=== PATIENT | female | born 1930 | race Caucasian/White ===

== ENCOUNTER 2017-11-01 13:50 | Inpatient (IN) ==
--- NOTE | 2017-11-01 14:12 | Emergency Department Report ---
Fall HPI - General Stated Complaint: FALL Time Seen by Provider: 11/01/17 14:28 Source: patient - History of Present Illness HPI Narrative: 87 YO F brought to ED via EMS for falling twice in the past 24 hours. Patient says she thinks falls are related to the increasing swelling, redness and bumps all over her bilateral lower legs. Says swelling started approx. one week ago. Has been soaking her legs once a day. Admits to hx. of CHF and renal disease. Patient says she is not taking any medications. Patient denies any injury from falls, striking her head, LOC, fever, chills, CP , SOA, nausea, vomiting, abdominal pain, diarrhea, dysuria. Patient denies any pain at this time. Patient continually states to provider that I am not going to be admitted to the hospital. Patient is difficult to obtain medical hx. Patient is orient x 3 but is slow to answer questions (questionable cognitive deficit)/ Neighbor who looks in on patient states patient's legs having been getting worse over the last year (bumps having been increasing). Neighbor says patient last saw a doctor last fall. Says patient is noncompliant and does not take any prescribed medication. Has seen Dr. Garcia and Dr. Nicholas but not in over 10 months to 1 year. - Related Data Previous Rx's Medication Instructions Recorded Acetaminophen [Tylenol] 500 mg PO Q5H PRN tab 11/10/17 Amlodipine [Norvasc] 10 mg PO HS #30 tab 11/10/17 Bisacodyl Supp [Dulcolax] 10 mg RECTALLY DAILY PRN 11/10/17 suppositor Cyanocobalamin (B-12) [Vit. B-12] 1,000 mcg PO DAILY tab 11/10/17 Fluconazole [Diflucan 150 mg 150 mg PO DAILY #2 tab 11/10/17 Tablet] Furosemide [Lasix 20 mg Tab] 20 mg PO DAILY #20 tab 11/10/17 Haloperidol [Haldol] 0.5 mg PO HS #30 tab 11/10/17 LORazepam [Ativan] 0.5 mg PO Q6HR PRN #20 tab 11/10/17 Losartan [Cozaar] 100 mg PO DAILY #30 tab 11/10/17 Milk of Magnesia [Mom] 30 ml PO DAILY PRN udc 11/10/17 Nystatin Cream [Mycostatin] 1 applicatio TOP TID #1 tube 11/10/17 PEG 3350 17gm PACKET [Miralax] 17 gm PO DAILY PRN packet 11/10/17 Spironolactone [Aldactone 25 mg] 25 mg PO DAILY #30 tab 11/10/17 Tramadol [Ultram] 50 mg PO Q4H PRN #30 tab 11/10/17 Allergies Allergy/AdvReac Type Severity Reaction Status Date / Time Sulfa (Sulfonamide Allergy Unknown Verified 11/01/17 14:05 Antibiotics) Review of Systems All systems: reviewed and negative except as stated Cardiovascular: Reports: edema, other Integumentary: Reports: erythema, lesions, swelling PFSH Patient Stated Medical History Congestive Heart Failure Yes Hypertension Yes Pneumonia Yes Hx Urinary Tract Infection Yes Blood Transfusions Yes Post Menopausal Yes Surgical History: Cholecystectomy. Hysterectomy. Appendectomy Family History: Parents both had "heart disease". - Social History Smoking status: Never smoker Substance use type: does not use Alcohol intake frequency: does not drink Physical Exam - Limitations Limitations: no limitations - General General appearance: alert - Normal Exams: Neck:: Full range of motion Chest/Respirations:: Clear all clifton, with good airflow, and symmetry bilaterally Cardiovascular:: Regular rate and rhythm Neurological:: Patient is alert, and oriented Psychiatric:: Patient exhibits, appropriate attention - Head Head exam: normocephalic - Expanded Head Exam Head exam physical: Present: other (ecchymosis over left malar area (various stage of healing brusing)) - Eye Eye exam: Present: EOMI - ENT ENT exam: Present: mucous membranes moist - Neck Neck exam: Present: trachea midline - Chest Chest inspection: Present: symmetric chest wall rise - Abdominal Exam Abdominal exam: Present: soft, guarding, rebound, hypoactive bowel sounds (x4). Absent: distention, tenderness - Extremities Exam Extremities exam: Present: other (see below) - Skin Skin exam: Present: other (see below) - Other Other exam information: 3-4+ edema bilateral lower leg Clifton peel appearing skin and mild erythema on bilateral lower legs and feet. Whitish scale on feet Hypertrophic bilateral toe nails Fall - MDM Narrative Medical decision making narrative: Patient declines IV. Labs unremarkable except for potassium of 2.6. Po 40 milliequivalents given. Bilirubin 2.30 (patient has no complaint of abdominal pain or no TTP of abdomen) Pro BNP 738 Patient declines IV potassium. Patient continues to refuse admission to hospital. Patient eventually agrees to 20 milliequivalents IV (Ike peres). Patient BP treated with 10mg of hydralazine. Neighbor says that patient has said that she see bug on her ceiling at home. Says patient had a UTI last time she saw bugs on her ceiling. I asked Dr. Jones to go in and see patient. Dr. Jones said that he spoke with patient and she does agree to admission. When I went back in to see patient she is now saying she does not want to be admitted. - Medical Records Attestation: I reviewed the patient's medical records. - Lab Data Attestation: I reviewed the patient's lab results. Result diagrams: 11/03/17 04:26 11/09/17 04:59 Disposition Clinical Impression: Hypokalemia, Candidiasis, intertrigo, Elevated BP without diagnosis of hypertension, Bilateral lower leg cellulitis, Self-care deficit in patient living alone Disposition: 02 To [facility] Condition: Stable - Seen By: midlevel and physician
[2017-11-01] MEDS ORDERED: LIDOCAINE 1% INJ 10 MG, POTASSIUM CHLORIDE INJ 10 MEQ in NS 100 ML IV SCH (16:00)
[2017-11-01] MEDS ORDERED: HYDRALAZINE 20 MG/ML INJECTION IVP ONE (17:00)
[2017-11-01 19:44] VITALS: BMI 30.4
--- NOTE | 2017-11-01 19:57 | History & Physical Report ---
History of Present Illness Date: 11/01/17 Chief complaint: falls, painful swollen legs HPI: Mrs. Patricia is a 87 yo female who reports falling a week ago and being seen in the emergency room at that time followed by a fall last night prompting reevaluation today. Review of ER records indicate she was last seen on 2016 at which time she had hallucinations, and pain and swelling of the ankles and was found to have a urinary tract infection. The patient reports that she summoned her neighbors help today by yelling all night and that her neighbor brought her to the emergency room for evaluation. Patient complains of swelling in her legs for about a year and that her legs are painful and "broken out all over". The pain and swelling in her legs makes it difficult for her to ambulate because her legs are heavy. She denies having fevers and there's been no drainage from her legs. EMS records indicate the patient is on twice in the past 24 hours. Patient denies injuring herself today but reports that she had facial bruising and contusions after her last fall. The neighbor who accompanied patient to the emergency room earlier today reports that the patient 's legs been getting worse over the past year and to become very bumpy. Patient was last seen by a physician last fall and the patient is noncompliant with medications not taking any prescribed medications currently. The patient alternately provides current historical information mixed in with old historical information and it's often difficult to determine if she is talking about current events or remote occurrences. Review of Systems All systems PM: 10-point ROS was reviewed, no additional remarkable complaints except (tinnitus, occasional chest pain which resolves when she sits down, stomach pain after she takes a couple of baby aspirin, possible weight gain, and increasing concern that she is unable to care for herself adequately at home.) Past Medical History Medical History: Medical History (Last Updated 11/01/17 @ 20:15 by Romelia Curran MD) Arthritis CAD (coronary artery disease) History SC 2-patient denies past history of coronary disease but reported an earlier records Congestive heart failure Hyperlipidemia Per past medical records Hypertension Surgical History: Hysterectomy with subsequent oophorectomy in a separate procedure; probable cholecystectomy (past records indicates prior appendectomy not cholecystectomy) Family History Updates: Both parents had coronary artery disease, mother had hypertension, father had colon cancer and may have related to GI hemorrhage. Son in motor vehicle accident at age 16. Family History: As Above - Social History Smoking status: Never smoker Substance use type: does not use Alcohol intake frequency: does not drink Social history: Patient reports she sees both Dr. Garcia and Dr. Nicholas but has seen neither in the recent past Her daughter has DPOA by patient history. Full code Medications Home Medications Medication Instructions Recorded Confirmed Type No known Home medications [No home 11/01/17 11/01/17 History meds] Allergies Allergy/AdvReac Type Severity Reaction Status Date / Time Sulfa (Sulfonamide Allergy Unknown Verified 11/01/17 14:05 Antibiotics) Exam Vital Signs: Temperature 98.4 F 11/01/17 13:55 Pulse Rate 82 11/01/17 17:48 Respiratory Rate 20 11/01/17 13:55 Blood Pressure 186/88 H 11/01/17 17:48 Pulse Oximetry 93 - RA 11/01/17 13:55 EXAM: General-NAD, talkative but circular speech combining past events with current events; speaks about parents as though they're alive HEENT-PERRL, EOMI without nystagmus, conjugate gaze, conjunctiva clear, sclera anicteric, facial structures symmetric, oropharynx clear, neck supple and without adenopathy Lungs-respirations nonlabored, good airflow, breath sounds clear Cardiac-regular rhythm, S1-S2 Abd-soft, nontender, bowel sounds present Ext-+3-4 edema bilateral lower extremities with peau d'orange appearance below the knees, no obvious ulcerations, mild erythema without warmth; some pitting edema palpable above the knees; hypertrophic nails Skin-as above MS-kyphotic with degenerative changes in the small joints of the hands Neuro-moving all extremities well however cannot raise her legs off the bed, no drift to the upper extremity; sensation intact to to touch and legs hypersensitive to touch, cranial nerves 3-12 intact Psych-pleasant, calm, cooperative Height/Weight/BMI: Height 1.8 m Weight 99.1 kg Body Mass Index 30.4 Results - Labs CBC & Chem 7: 11/01/17 14:54 11/01/17 14:54 Labs: Bilirubin 2.3, remainder of liver enzymes unremarkable ProBNP 743 Urinalysis unremarkable - ECG Data Tracing #1 I reviewed this ECG and interpreted as documented below: (sinus rhythm, old inferior SC, diffuse T-wave flattening) Assessment and Plan (1) Self-care deficit in patient living alone Current visit: Yes Status: Acute (2) Hypokalemia Current visit: Yes Status: Acute Assessment and Plan: Impression: Deficiency in self-care Hypokalemia Edema/lymphedema Candidiasis/intertrigo Stasis dermatitis-severe Uncontrolled hypertension Ambulatory dysfunction with falls Hyperbilirubinemia Reported history of CHF, CAD, hyperlipidemia-all untreated currently Probable cognitive deficits Plan: Resume diuretics, pain control, continue potassium replacement-received 60 mEq in the emergency room, reassess in a.m. before additional doses given. Etiology of hypokalemia unclear-mild hypokalemia present when she was in the emergency room in April 2017 but prior to that time potassium was normal. Topical antifungal's at present, cultures needed, may require biopsy of LE. Marked hypertension, will avoid calcium blockers due to lower extremity edema. Resume diuretics, losartan 50 mg tonight, hydralazine/labetalol IV as needed. Elevate legs. Tramadol for pain if needed. Records indicate intolerance of acetaminophen products. Chest x-ray will be obtained due to uncontrolled hypertension and history of CHF. Will require PT/OT evaluations and case management assessment. YAMILETH eval will be scheduled. Unclear patient can live safely in the community at this time. Initiate Pepcid 20 mg twice a day as patient describes abdominal pain with baby aspirin. Lovenox for DVT prophylaxis. Full code per patient request although I'm not sure she understood the conversation. Discussed with nursing, ER provider; past hospital records reviewed. DVT Prophylaxis: Lovenox GI Prophylaxis: Pepcid Resuscitation Status: Full Code - Physician Narrative Narrative: Date: 11/01/17 Time: 1950 Hospital Course Summary Disclaimer: The visit summary below is not to be considered part of the above Progress Note.
[2017-11-01] MEDS ORDERED: LABETALOL 100mg/20ml INJECTION IVP PRN (20:21)
[2017-11-01] MEDS ORDERED: METOCLOPRAMIDE 10mg/2ml INJECTION IVP PRN (20:24)
[2017-11-01] MEDS ORDERED: FUROSEMIDE 20 MG/2 ML INJECTION IVP ONE (20:28)
[2017-11-01] MEDS: TRAMADOL 50 MG TABLET PO PRN (21:59)
[2017-11-01] MEDS: LOSARTAN 50 MG TABLET PO SCH (23:03)
[2017-11-01] MEDS: FAMOTIDINE 20 MG TABLET PO SCH (23:03)
[2017-11-01] MEDS: HYDRALAZINE 20 MG/ML INJECTION IVP PRN (23:40)
[2017-11-01] MEDS: SALINE FLUSH 10ml SYRINGE IVF PRN (23:44)
[2017-11-02] MEDS: HALOPERIDOL 5 MG/ML INJECTION IM SCH ×2 (06:17→22:57)
[2017-11-02] MEDS: ENOXAPARIN 40 MG/0.4 ML INJECTION SQ SCH (08:37)
[2017-11-02] MEDS: FAMOTIDINE 20 MG TABLET PO SCH ×2 (08:38→22:57)
[2017-11-02] MEDS: POLYETHYL GLYCOL 3350 17gm PACKET PO SCH (08:38)
[2017-11-02] MEDS: LOSARTAN 50 MG TABLET PO SCH ×2 (08:38→14:53)
--- NOTE | 2017-11-02 09:46 | Progress Note ---
- Date 11/02/17 Subjective: Suzanna is seen today in follow up. She remains quite confused, but is alert. She is frustrated, wants to know why she is in the hospital. Discussed that she is sick- states "If you did that to everyone, you would be full all the time." She will not answer if she is having pain. Has been refusing her medications. I asked about the skin changes to her legs- she reports that it has been going on "for a while." Denies using any cream on them-"they won't give me anything." Chart is reviewed for collateral information. Patient is a poor historian. Does not want to be in the hospital. Objective Vital signs: Temperature 97.4 F 11/02/17 04:06 Pulse Rate 82 11/02/17 04:06 Respiratory Rate 24 11/02/17 04:06 Blood Pressure 170/90 H 11/02/17 04:06 Pulse Oximetry 91 11/02/17 04:06 Rhythm: Bundle Branch Block Height/Weight/BMI: Height 1.8 m Weight 98.7 kg Body Mass Index 30.4 - Constitutional Present: no acute distress, obese, disheveled - Routine HEENT Exam Head: Present: normocephalic, atraumatic Eye: Present: EOMI, PERRL, periorbital ecchymosis (left eye) ENT: Present: mucous membranes dry - Routine Respiratory Exam Present: decreased breath sounds, CTA bilaterally. Absent: dyspnea, rales, rhonchi, crackles - Routine Cardiovascular Exam Present: S1, S2, click Comments: Occasional skipped beat, but overall is regular. - Routine Abdominal Exam Present: soft, normoactive bowel sounds, non distended, non tender - Routine Extremities Exam Present: edema, pulses intact, tenderness - Routine Back/Spine/Pelvis Exam Back/Spine: Present: kyphosis - Routine Musculoskeletal Exam Musculoskeletal: Present: limited range of motion. Absent: normal strength - Routine Skin Exam Present: dry, warm, lesions, wounds (Bilateral LE nodular lesions mid calf to toes. Mildly erythematous. Unstable ulcers on the tips of first and second toes , right foot. Small open area left white. ), cracked - Routine Neurological Exam Present: alert, moving all extremities, normal speech. Absent: oriented X3 - Routine Psychiatric Exam Present: anxious, paranoid. Absent: normal affect, normal thought process, good insight, good judgment Results - Labs CBC & Chem 7: 11/02/17 04:47 11/02/17 04:47 - Imaging and Cardiology Chest x-ray Status: image reviewed by me, pending Additional comments: Grossly abnormal. Very elevated right hemidiaphragm. Very large, triangular density in upper chest- impossible to accurately determine findings on film. Right side is much more progressed since last CXR 2014. Will order repeat. Assessment and Plan (1) Hypokalemia Current visit: Yes Status: Acute (2) Self-care deficit in patient living alone Current visit: Yes Status: Acute Assessment and Plan: Impression: Deficiency in self-care Hypokalemia Edema/lymphedema Candidiasis/intertrigo Stasis dermatitis-severe Uncontrolled hypertension Ambulatory dysfunction with falls Hyperbilirubinemia Reported history of CHF, CAD, hyperlipidemia-all untreated currently Probable cognitive deficits Plan: 11/02/17 Patient remains very confused. Does not want to be here, but I strongly question her competency in regards to decision making capacity. It appears that there were similar concerns in 2015, but this has progressed. Will consult psychiatry for assessment. PT/OT eval pending, pt. will need SONJA. She clearly cannot care for herself at this point, so will continue hospital stay. Persistent Hypokalemia despite replacement. Will initiate IV replacement therapy. She continues to require monitoring for both her hypokalemia and elevated BP. Will change to inpatient status. Order telemetry monitoring during IV replacement, and to further assess irregular rhythm heard on exam. Patient remains very hypertensive, but has been refusing antihypertensive medications. Will start her on Clonidine TTS for now, but will need to monitor for sedation in an inpatient setting. Legs remain grossly abnormal. Would consider biopsy of lesions to R/O lymphoma. Possible surgery consult in AM for bx. Edema is better. EF is unknown. Pt was not voiding last night- if persists, we may need to place a Alford. Will repeat CXR given one done last night was grossly abnormal, concern for poor study. Will need SW involvement. Continue to monitor labs. Old chart reviewed. D/W Dr. Curran. DVT Prophylaxis: Lovenox GI Prophylaxis: Pepcid Resuscitation Status: Full Code - Time spent with patient Time with patient PN: other (45 minutes spent in patient care-majority in conversation with the patient at the bedside.) - Physician Narrative Physician: Romelia Curran MD Narrative: Date: 11/02/17 Time: 1734 I have independently evaluated and examined this patient. I reviewed the chart, the patient's history, and the [employer]/PA's documented findings as above. We discussed and formulated the assessment and plan as above with additions as below: Suzanna was frustrated when I saw her just after noon today; she had declined all medications this morning indicating that everything she's ever taken has caused problems. We had a lengthy discussion regarding falls and fall risk and the fact that she is unable to ambulate safely. I reminded her that she came to the hospital to get help and is now rejecting attempts to help her. Results of her labs and vital signs were reviewed with her in detail and need to intervene to prevent strokes and arrhythmias discussed. She complained of cramping in her right forearm but denied headache or difficulty breathing. She reported that she thought her legs looked a little better and less swollen today than yesterday. She eventually acknowledged that she is not able to walk by herself. Disheveled physical appearance Respirations are nonlabored and anterior breath sounds clear Lower extremities with +2 nodular edema, faint erythema; dry ulcerations adjacent to toenails as described above; hypertrophic nails Tracks conversation a little better today than she did last night Chest x-rays reviewed by myself-initial film could not really be interpreted other than elevated right hemidiaphragm (patient reports is always been that way ) film repeated and demonstrates elevated right hemidiaphragm, chronic changes in the left proximal humerus consistent with old fracture, and relatively clear lung clifton. Potassium (symptomatic) and phosphorus both require replacement-IV replacement recommended for simplicity but patient has rejected that idea; K-Phos ordered- patient agrees to taking orange juice but has yet to take a dose. She has taken losartan this afternoon after discussion with both myself and her daughter. Sonja testing planned; psychiatric assessment planned-discussed with Dr. Dennis earlier today. Wound care ordered-briefly discussed biopsy of lower extremity with patient and her daughter. The patient's daughter describes increasing confusion for a number of months with episodes when the patient loses all sensitive reality and confabulates- patient has recently insisted that her daughter was in town earlier this week although she actually has not been here since June; her daughter reports that the patient is currently angry with her for leaving [facility] earlier this week. The patient has a sister who lives in [place] and friends who live in the same [facility] house complex who provides significant assistance for the patient and we'll be able to provide additional supplemental history. Patient has previously refused extra help in the home including Meals on Wheels and housekeeping services which her daughter attempted to set up earlier this year. Daughter describes patient is very strong-willed and reports that her mother has been ready to for some time following deaths of her and son previously. Hospital Course Summary Disclaimer: The visit summary below is not to be considered part of the above Progress Note. Hospital Course: Impression: Deficiency in self-care Hypokalemia Edema/lymphedema Candidiasis/intertrigo Stasis dermatitis-severe Uncontrolled hypertension Ambulatory dysfunction with falls Hyperbilirubinemia Reported history of CHF, CAD, hyperlipidemia-all untreated currently Probable cognitive deficits Plan: Resume diuretics, pain control, continue potassium replacement-received 60 mEq in the emergency room, reassess in a.m. before additional doses given. Etiology of hypokalemia unclear-mild hypokalemia present when she was in the emergency room in April 2017 but prior to that time potassium was normal. Topical antifungal's at present, cultures needed, may require biopsy of LE. Marked hypertension, will avoid calcium blockers due to lower extremity edema. Resume diuretics, losartan 50 mg tonight, hydralazine/labetalol IV as needed. Elevate legs. Tramadol for pain if needed. Records indicate intolerance of acetaminophen products. Chest x-ray will be obtained due to uncontrolled hypertension and history of CHF. Will require PT/OT evaluations and case management assessment. SONJA eval will be scheduled. Unclear patient can live safely in the community at this time. Initiate Pepcid 20 mg twice a day as patient describes abdominal pain with baby aspirin. Lovenox for DVT prophylaxis. Full code per patient request although I'm not sure she understood the conversation. Discussed with nursing, ER provider; past hospital records reviewed. 11/02/17 Patient remains very confused. Does not want to be here, but I strongly question her competency in regards to decision making capacity. It appears that there were similar concerns in 2014, but this has progressed. Will consult psychiatry for assessment. PT/OT eval pending, pt. will need SONJA. She clearly cannot care for herself at this point, so will continue hospital stay. Persistent Hypokalemia despite replacement. Will initiate IV replacement therapy. She continues to require monitoring for both her hypokalemia and elevated BP. Will change to inpatient status. Order telemetry monitoring during IV replacement, and to further assess irregular rhythm heard on exam. Patient remains very hypertensive, but has been refusing antihypertensive medications. Will start her on Clonidine TTS for now, but will need to monitor for sedation in an inpatient setting. Legs remain grossly abnormal. Would consider biopsy of lesions to R/O lymphoma. Edema is better. EF is unknown. Pt was not voiding last night- if persists, we may need to place a Alford. Will repeat CXR given one done last night was grossly abnormal, concern for poor study. Will need SW involvement. Continue to monitor labs. Old chart reviewed. D/W Dr. Curran
--- NOTE | 2017-11-02 12:34 | XRay Report ---
Indication: CHF PROCEDURE: XR chest 1V: Encounter: Initial Comparison: August 08, 2010 Findings: Elevated right hemidiaphragm. Soft tissues overlapping the upper to mid lung clifton limiting the evaluation. No focal pneumonia or gross pneumothorax. Colon interposition anterior to the liver. Cardiac silhouette is obscured. Pulmonary vascularity is now not obviously enlarged. Densities projecting over the right upper abdomen could represent healing subacute rib fractures or possibly gallstones. Impression: Limited exam. No focal pneumonia. .
[2017-11-02] MEDS ORDERED: POTASSIUM ACID PHOSPHATE 500 MG TABLET (URINARY ACIDIFIER) PO SCH (12:36)
--- NOTE | 2017-11-02 12:39 | XRay Report ---
Indication: Abnormal CXR PROCEDURE: XR chest 1V: Encounter: Initial Comparison: November 01, 2017 Findings: Appearance of the chest is unchanged with a markedly elevated right hemidiaphragm. No obvious focal pneumonia, gross pleural effusion or pneumothorax. Cardiac silhouette is mostly obscured. Pulmonary vascularity is stable. Chronic appearing left humeral head fracture. Impression: Stable chest without gross pneumonia or overt congestive failure. .
[2017-11-02] MEDS: POTASSIUM CHLORIDE INJ 40 MEQ in NS 1,000 ML IV SCH (12:48)
[2017-11-02] MEDS: LIDOCAINE 1% INJ 10 MG, POTASSIUM CHLORIDE INJ 10 MEQ in NS 100 ML IV SCH (12:48)
[2017-11-02] MEDS: SALINE FLUSH 10ml SYRINGE IVF PRN (14:33)
[2017-11-02] MEDS: TRAMADOL 50 MG TABLET PO PRN (14:51)
[2017-11-02] MEDS: PHOSPHORUS 250 MG TABLET PO SCH ×2 (18:25→22:36)
[2017-11-02] MEDS ORDERED: FALL RISK - PHARMACY CONSULT MC ONE (23:18)
[2017-11-03] MEDS: POTASSIUM CHLORIDE INJ 40 MEQ in NS 1,000 ML IV SCH ×2 (06:44→12:09)
--- NOTE | 2017-11-03 07:51 | 24 Hour Neuropsychiatic Eval ---
Date of Admission: 11/02/17 09:53 Chief complaint: "I had a fall" History of Present Illness: Patient is an 87 y/o , retired female who was admitted to [facility] on 11/01/17 s/p fall at home. Patient lives at home independently. Per primary team at time of admission: "Mrs. Patricia is a 87 yo female who reports falling a week ago and being seen in the emergency room at that time followed by a fall last night prompting reevaluation today. Review of ER records indicate she was last seen on 05/16/2017 at which time she had hallucinations, and pain and swelling of the ankles and was found to have a urinary tract infection. The patient reports that she summoned her neighbors help today by yelling all night and that her neighbor brought her to the emergency room for evaluation. Patient complains of swelling in her legs for about a year and that her legs are painful and "broken out all over". The pain and swelling in her legs makes it difficult for her to ambulate because her legs are heavy. She denies having fevers and there's been no drainage from her legs. EMS records indicate the patient is on twice in the past 24 hours. Patient denies injuring herself today but reports that she had facial bruising and contusions after her last fall. The neighbor who accompanied patient to the emergency room earlier today reports that the patient's legs been getting worse over the past year and to become very bumpy. Patient was last seen by a physician last fall and the patient is noncompliant with medications not taking any prescribed medications currently. The patient alternately provides current historical information mixed in with old historical information and it's often difficult to determine if she is talking about current events or remote occurrences." Since admission, patient has given varying stories and doesn't seem to have cognitive grasp of medical issues or recommended care. Psychiatry was consulted for capacity evaluation. On interview, patient is pleasant though lacks insight into cognitive deficits and feels she has been managing well at home. She reports that her mood is "jolly" most of the time and denies feeling depressed, SI, HI, AVH. She states that she doesn't have any current medical conditions other than her pain in her legs and recent fall. She cannot name any past medical conditions that she has had. She is unable to tell me who her PCP is or when she last saw them. She states that she does not take any medications and does not need any. She remembers having a fall and believes the paramedics brought her to the hospital , but cannot say who called the paramedics or all that occurred during the event. Patient's daughter has also reported concerns about patient's functioning and declining cognition to primary team. Current medical conditions: hypokalemia (the board says "You are here for low potassium" though patient cannot relay this to me), stasis dermatitis, hypertension, increased bilirubin, history of CHF, CAD and HLD. Patient has severe edema in her legs. Patient was willing to participate in [employer] and scored an 11/30, indicating a neurocognitive disorder. She has gross deficits in working memory. Patient was fully oriented. She was able to remember 2/5 objects on delayed recall. She was unable to answer questions about money. She was able to name 8 animals in 1 minute. She was unable to repeat a series of 3+ numbers backwards. She was unable to draw a clock or set the time. She answered 1/4 story questions correctly. Patient states that she believes her daughter is financial DPOA but is unsure whether she has a medical DPOA. She would like her daughter to be her medical DPOA and is willing to sign the paperwork if she is not currently. Psych hx: Patient reports depression years ago after her 16 y/o son , but denies any hx of psychotropic use, suicide attempts or psychiatric hospitalizations. [facility] Medical History (Last Updated 11/01/17 @ 20:15 by Romelia Curran MD) Arthritis (Acute Medical) CAD (coronary artery disease) (Acute Medical) History [place] 2-patient denies past history of coronary disease but reported an earlier records Congestive heart failure (Acute Medical) Hyperlipidemia (Acute Medical) Per past medical records Hypertension (Acute Medical) Surgical History: Cholecystectomy. Hysterectomy. Appendectomy Family History: Denies any family hx of dementia. Mother: depression Family History Updates: Both parents had coronary artery disease, mother had hypertension, father had colon cancer and may have related to GI hemorrhage. Son in motor vehicle accident at age 16. 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 Has some college education. Had 2 children, her son in an accident at 16 y/o and her daughter Kerry is alive but lives in [place] per patient report. She states her also during a surgery but cannot remember when. She now lives alone in [place]. Review of Systems All systems: reviewed and no additional remarkable complaints except as stated - EENMT Balance: Present: other (recent falls at home) - Musculoskeletal Musculoskeletal: Present: other (pain in legs d/t swelling) - Neurological Neurological: Present: memory loss (patient denies), other (endorses PINEDA in L occipital region) - Hematologic/Lymphatic Hematologic/Lymphatic: Present: other (edema in BLE) Mental Status Exam Vitals: Last Vital Signs Temp 98.0 F 11/03/17 00:00 Pulse 77 11/03/17 00:00 Resp 20 11/03/17 00:00 BP 168/100 H 11/03/17 00:43 Pulse Ox 93 11/03/17 00:00 Height: 1.8 m Weight: 99.8 kg - Mental Status Exam Muscle Strength/Tone: Weak Dressing: Casual Grooming: Poor Attitude: Cooperative Motor Activity: Normal Eye Contact: Good Speech: Normal Volume: Normal Rhythm: Appropriate Rhythm Sensory: Alert Orientation: Oriented X4 Mood: Euthymic Affect: Relaxed Rate of Thoughts: Appropriate Rate Thought Organization: Organized, Confused Associations: Intact Abstract Reasoning: Poor abstract reasoning Computation: Poor Computation Thought Content: Ruminations (about son's though says this has gotten easier with time) Perception/Psychotic: Perception Normal Language: Other (some difficulty with naming) Fund of Knowledge: Poor fund of knowledge (UMS 04/24) Memory: Poor-immediate, Poor-recent Suicidal Ideation: Denies Homicidal Ideation: Denies Insight: Impaired Judgement: Impaired Impulse Control: Fair - Laboratory Result Diagrams: 11/03/17 04:26 11/03/17 04:26 Laboratory Results - last 24 hr 11/02/17 11/03/17 11/03/17 10:20 04:26 04:26 WBC 7.0 RBC 4.10 Hgb 12.1 Hct 38.3 MCV 93.4 MCH 29.5 MCHC 31.6 RDW Std Deviation 49.1 Plt Count 205 MPV 10.6 Immature Gran % (Auto) 0.1 Neut % (Auto) 60.8 Lymph % (Auto) 22.5 L Kay % (Auto) 10.5 H Eos % (Auto) 6.0 H Baso % (Auto) 0.1 Neut # (Auto) 4.2 Lymph # (Auto) 1.6 Kay # (Auto) 0.7 Eos # (Auto) 0.4 Baso # (Auto) 0.0 Abs Immat Gran (auto) 0.01 Turbidity < 20 Sodium 140 Potassium 3.2 L Chloride 100 Carbon Dioxide 31 H Anion Gap 9 BUN 17.0 Creatinine 0.7 GFR Calculation 79 BUN/Creatinine Ratio 24 Glucose 103 Glucometer 89 Calculated Osmolality 271 Calcium 8.7 Phosphorus 3.6 Icterus Index < 2 Albumin 3.5 Specimen Hemolysis 25 Assessment and Plan (1) Major neurocognitive disorder Current visit: Yes Status: Acute Other medical conditions: hypokalemia, stasis dermatitis, hypertension, hx of CHF, CAD and HLD Recommend checking Vitamin B12 and folate levels, replacing Vitamin B12 IM if under 400. Patient lacks capacity to make her own medical decisions though she would like to name her daughter medical DPOA and does have the capacity to do so. Please contact me if you have any further Qs, thank you for this consult.
[2017-11-03] MEDS: LOSARTAN 50 MG TABLET PO SCH (08:55)
[2017-11-03] MEDS: FAMOTIDINE 20 MG TABLET PO SCH ×2 (08:55→21:58)
[2017-11-03] MEDS: ENOXAPARIN 40 MG/0.4 ML INJECTION SQ SCH (08:55)
[2017-11-03] MEDS: PHOSPHORUS 250 MG TABLET PO SCH ×5 (08:55→22:12)
[2017-11-03] MEDS: POLYETHYL GLYCOL 3350 17gm PACKET PO SCH (08:56)
[2017-11-03] MEDS: FLUCONAZOLE 150 MG TABLET PO SCH (13:53)
--- NOTE | 2017-11-03 16:02 | Progress Note ---
- Date 11/03/17 Subjective: Patient is seen sitting in bed this afternoon. She c/o feeling very tired. She denies pain but has pain with palpation of the lower legs. No CP, SOA, n/ v. Reports her bowels are moving and appetite is ok. Objective Vital signs: Temperature 98.7 F 11/03/17 08:00 Pulse Rate 106 H 11/03/17 08:00 Respiratory Rate 18 11/03/17 08:00 Blood Pressure 206/113 H 11/03/17 08:00 Pulse Oximetry 94 11/03/17 08:00 Height/Weight/BMI: Weight 99.8 kg - Constitutional Present: no acute distress, well nourished, well developed - Routine HEENT Exam Head: Present: normocephalic, atraumatic - Routine Respiratory Exam Present: decreased breath sounds (RLL (has elevated R hemidiaphragm on CXR)), CTA bilaterally. Absent: wheezes - Routine Cardiovascular Exam Present: RRR (w/ occ ectopy), no murmur - Routine Abdominal Exam Present: soft, non distended, non tender - Routine Extremities Exam Comments: chronic skin changes of LE's with significant hyperkeratosis on the feet and extending up the lower leg distal to the knees. She has very mild erythema likely r/t venous stasis. Onychomycotic changes to the toenails. - Routine Skin Exam Present: dry, warm - Routine Neurological Exam Present: alert, normal speech - Routine Lymphatic Exam Lymphatic: Absent: adenopathy - Routine Psychiatric Exam Present: normal affect, cooperative Results - Labs CBC & Chem 7: 11/03/17 04:26 11/03/17 04:26 Assessment and Plan (1) Hypokalemia Current visit: Yes Status: Acute (2) Self-care deficit in patient living alone Current visit: Yes Status: Acute Assessment and Plan: Impression: Deficiency in self-care Hypokalemia Edema/lymphedema w/ chronic skin changes of LE's Candidiasis/intertrigo Stasis dermatitis-severe Uncontrolled hypertension Ambulatory dysfunction with falls Hyperbilirubinemia Reported history of CHF, CAD, hyperlipidemia-all untreated currently Probable cognitive deficits Onychomycosis Hypophosphatemia Plan: Psych evaluated pt and has ordered Vit B12 and folate. Rec replace B12 if < 400. Indicates patient has capacity to name daughter as medical DPOA. Dr. Curran has spoke with her daughter and they have agreed on DO NOT INTUBATE status. Persistent hypokalemia - potassium supplemented p.o. Repeat BMP in a.m. to follow electrolytes. Taking K-Phos. Pt willing to take Diflucan for her onychomycosis. Refusing any IV meds and fluids at present. Patient remains very hypertensive, but has been refusing antihypertensive medications. Wound clinic recommendation is to contact HH nurse who specializes in lymphedema. Case management to look into placement opts. OT rec SNU. YAMILETH 6.5. DVT Prophylaxis: Lovenox Resuscitation Status: Do Not Intubate - Time spent with patient Time with patient PN: 50 minutes Coordination of Care: >50% of visit spent providing counseling/coordination of care - Physician Narrative Physician: Romelia Curran MD Narrative: Date: 11/03/17 Time: 1814 I have independently evaluated and examined this patient. I reviewed the chart, the patient's history, and the [employer]/PA's documented findings as above. We discussed and formulated the assessment and plan as above with additions as below: Suzanna was pleasant and able to track conversation again today when I spoke with her. She is frustrated with her functional limits and acknowledges that she can't walk but does not want to consider going to a nursing facility due to cost. She denied dyspnea or nausea and indicated that she feels her legs look a little better again today and that there is less swelling. Her legs are hypersensitive to touch. We had a lengthy discussion regarding CODE STATUS and she indicated that she absolutely did not want a tube put down her throat even if it meant dying of respiratory failure. She is uncertain of whether she wants CPR or defibrillation. DNI order written. NAD, talkative Respirations nonlabored with fair airflow and clear breath sounds anteriorly Abdomen soft/nontender Lymphedema with nodular irregular skin texture below the knees, I concur that there is a little less edema than there was on admission but minimally so Marked thickening of the nails, onychomycosis; cracking of the skin of the feet. Blood pressure remains uncontrolled, patient is taking some medications but refusing all IVs therapies. Patient has previously taken Dyazide (brand-name only) and tolerated this medication without difficulty; I recommended addition of spironolactone to her regimen as both a diuretic and help with potassium management and she seems agreeable. Will additionally try oral furosemide liquid mixed in juice to promote diuresis. If blood pressures remain significantly elevated over the next 24 hours will increase losartan to 100 mg daily or add second agent. SLUMS exam per Dr. Dennis-04/24 systolic with cognitive deficits Diflucan initiated for onychomycosis/fungal skin infection Discussed with patient's daughter who anticipates returning to [place] in the next couple of days to assist with placement of her mother. She favors DO NOT RESUSCITATE order and I advised her of progress being made slowly and changed to DO NOT INTUBATE order earlier today. SNU recommended by PT/OT. Hospital Course Summary Disclaimer: The visit summary below is not to be considered part of the above Progress Note. Hospital Course: 11/01/17 Resume diuretics, pain control, continue potassium replacement-received 60 mEq in the emergency room, reassess in a.m. before additional doses given. Etiology of hypokalemia unclear-mild hypokalemia present when she was in the emergency room in April 2017 but prior to that time potassium was normal. Topical antifungal's at present, cultures needed, may require biopsy of LE. Marked hypertension, will avoid calcium blockers due to lower extremity edema. Resume diuretics, losartan 50 mg tonight, hydralazine/labetalol IV as needed. Elevate legs. Tramadol for pain if needed. Records indicate intolerance of acetaminophen products. Chest x-ray will be obtained due to uncontrolled hypertension and history of CHF. Will require PT/OT evaluations and case management assessment. YAMILETH eval will be scheduled. Unclear patient can live safely in the community at this time. Initiate Pepcid 20 mg twice a day as patient describes abdominal pain with baby aspirin. Lovenox for DVT prophylaxis. Full code per patient request although I'm not sure she understood the conversation. Discussed with nursing, ER provider; past hospital records reviewed. 11/02/17 Patient remains very confused. Does not want to be here, but I strongly question her competency in regards to decision making capacity. It appears that there were similar concerns in 2014, but this has progressed. Will consult psychiatry for assessment. PT/OT eval pending, pt. will need YAMILETH. She clearly cannot care for herself at this point, so will continue hospital stay. Persistent Hypokalemia despite replacement. Will initiate IV replacement therapy. She continues to require monitoring for both her hypokalemia and elevated BP. Will change to inpatient status. Order telemetry monitoring during IV replacement, and to further assess irregular rhythm heard on exam. Patient remains very hypertensive, but has been refusing antihypertensive medications. Will start her on Clonidine TTS for now, but will need to monitor for sedation in an inpatient setting. Legs remain grossly abnormal. Would consider biopsy of lesions to R/O lymphoma. Edema is better. EF is unknown. Pt was not voiding last night- if persists, we may need to place a [place]. Will repeat CXR given one done last night was grossly abnormal, concern for poor study. Will need SW involvement. Continue to monitor labs. Old chart reviewed. D/W Dr. Curran 11/03/17 Psych evaluated pt and has ordered Vit B12 and folate. Rec replace B12 if < 400. Indicates patient has capacity to name daughter as medical DPOA. Dr. Curran has spoke with her daughter and they have agreed on DO NOT INTUBATE status. Persistent hypokalemia - potassium supplemented p.o. Repeat BMP in a.m. to follow electrolytes. Taking K-Phos. Pt willing to take Diflucan for her onychomycosis. Refusing any IV meds and fluids at present. Patient remains very hypertensive, but has been refusing antihypertensive medications. Wound clinic recommendation is to contact nurse who specializes in lymphedema. Case management to look into placement opts. OT rec [facility]. YAMILETH 6.5.
[2017-11-03] MEDS: SPIRONOLACTONE 25 MG TABLET PO SCH (18:45)
[2017-11-04] MEDS: LOSARTAN 50 MG TABLET PO SCH ×3 (01:51→10:03)
[2017-11-04] MEDS: HYDRALAZINE 20 MG/ML INJECTION IVP PRN ×2 (07:30→15:12)
[2017-11-04] MEDS: ACETAMINOPHEN 500 MG TABLET PO PRN (10:00)
[2017-11-04] MEDS: ENOXAPARIN 40 MG/0.4 ML INJECTION SQ SCH ×2 (10:01→10:28)
[2017-11-04] MEDS: FAMOTIDINE 20 MG TABLET PO SCH ×2 (10:01→21:25)
[2017-11-04] MEDS: PHOSPHORUS 250 MG TABLET PO SCH ×4 (10:01→21:25)
[2017-11-04] MEDS: SPIRONOLACTONE 25 MG TABLET PO SCH (10:01)
[2017-11-04] MEDS: FLUCONAZOLE 150 MG TABLET PO SCH (10:02)
[2017-11-04] MEDS: POLYETHYL GLYCOL 3350 17gm PACKET PO SCH (10:02)
[2017-11-04] MEDS: FUROSEMIDE 40 MG/4 ML ORAL LIQUID PO SCH (10:02)
[2017-11-04] MEDS ORDERED: BISACODYL 10 MG SUPPOSITORY RECTALLY PRN (11:16)
[2017-11-04] MEDS ORDERED: Bisacodyl EC TAB 5 MG TABLET PO PRN (11:16)
--- NOTE | 2017-11-04 12:28 | Wound Care Progress Note ---
Wound Center Progress Note: Pt seen 11/03/17 for wound consultation r/t bilateral lower leg skin changes. Pt resting in bed, watching TV, no complaints of pain. Pt reports she has had problems with her legs for the past year. She applies no dressings at home. Pt states she tries to elevate legs, but this is difficult. Bilateral lower legs: Evidence of chronic lymphedema changes from dorsal aspect of feet to just below the knees. Skin is hyperkeratotic, fibrotic with lymph nodules. Legs are tender to palpation. Bilateral lower legs have +2-3 edema, no active drainage, skin appears to be intact, scattered small abrasions. Recommendations: Lotion as tolerated to keep skin from cracking open making it susceptible to bacteria. Pt wound benefit from tx from a lymphedema therapist. Keep legs elevated while sitting and in bed, as tolerated.
--- NOTE | 2017-11-04 13:10 | Progress Note ---
- Date 11/04/17 Subjective: F/U: Hypokalemia, LE edema, Leg weakness Doing fair. Not liking IV site that was placed overnight-irritating. Not wanting any IV meds. BP with elevation overnight-Cozaar give early. Not reporting chest pressure or pain. Breathing well-no cough/congestion. Strength feels fair. Leg edema about the same. Urinating well. Stools moving. Eating okay -notes some nausea with medications. Objective Vital signs: Temperature 97.4 F 11/04/17 08:09 Pulse Rate 93 11/04/17 08:55 Respiratory Rate 22 11/04/17 08:09 Blood Pressure 168/106 H 11/04/17 08:55 Pulse Oximetry 94 11/04/17 08:55 Rhythm: Bundle Branch Block Height/Weight/BMI: Weight 99 kg - Constitutional Present: well nourished, well developed, obese - Routine HEENT Exam Head: Present: normocephalic, atraumatic Eye: Present: EOMI, PERRL ENT: Present: mucous membranes moist - Routine Respiratory Exam Present: decreased breath sounds. Absent: rales, respiratory distress, rhonchi , wheezes, crackles - Routine Cardiovascular Exam Present: RRR, no murmur - Routine Abdominal Exam Present: soft, normoactive bowel sounds, non distended, non tender. Absent: guarding - Routine Extremities Exam Present: edema (+3 chronic LE edema with chronic skin changes ). Absent: cyanosis, clubbing - Routine Musculoskeletal Exam Musculoskeletal: Present: no clubbing or cyanosis - Routine Skin Exam Present: dry, warm - Routine Neurological Exam Present: alert, CN II-XII intact, moving all extremities, vision grossly intact , hearing grossly intact, normal speech. Absent: altered mental status - Routine Psychiatric Exam Present: normal affect, cooperative Results - Labs CBC & Chem 7: 11/03/17 04:26 11/04/17 04:05 Assessment and Plan (1) Hypokalemia Current visit: Yes Status: Acute (2) Self-care deficit in patient living alone Current visit: Yes Status: Acute Assessment and Plan: Impression Hypokalemia (POA) Deficiency in self-care Edema/lymphedema w/ chronic skin changes of LE's Candidiasis/intertrigo Stasis dermatitis-severe Uncontrolled hypertension Major neurocognitive disorder Ambulatory dysfunction with falls Hyperbilirubinemia Reported history of CHF, CAD, hyperlipidemia - all untreated currently at presentation Onychomycosis Hypophosphatemia Low normal vitamin B12 Obesity with BMi 30.4 Plan Potassium with decrease to 2.8 this am. Phos improved to 4.3. Creatinine stable at 0.6 but CO2 increased to 32. Will stop KPhos and increase oral KCl to 20meg TID with meals. Continue Cozaar 50mg daily for BP. Will continue oral Lasix and spironolactone to help decrease edema/volume. Did agree to these medications. Vitamin B12 low normal at 255 - will start oral B12 (pt's likely to refuse IM injection). Elevate legs at rest as much as possible. PT/OT to help improve functional status. Will recheck CMP, Mg in am secondary to hypokalemia and medication use. Case discussed with CM and pt's daughter. Time spent with patient care 35 minutes. DVT Prophylaxis: Lovenox Resuscitation Status: Do Not Intubate - Time spent with patient Time with patient PN: 35 minutes - Physician Narrative Physician: Alcides Manning MD Narrative: Date: 11/04/17 Time: 1307 Hospital Course Summary Disclaimer: The visit summary below is not to be considered part of the above Progress Note. Hospital Course: 11/01/17 Resume diuretics, pain control, continue potassium replacement-received 60 mEq in the emergency room, reassess in a.m. before additional doses given. Etiology of hypokalemia unclear-mild hypokalemia present when she was in the emergency room in April 2017 but prior to that time potassium was normal. Topical antifungal's at present, cultures needed, may require biopsy of LE. Marked hypertension, will avoid calcium blockers due to lower extremity edema. Resume diuretics, losartan 50 mg tonight, hydralazine/labetalol IV as needed. Elevate legs. Tramadol for pain if needed. Records indicate intolerance of acetaminophen products. Chest x-ray will be obtained due to uncontrolled hypertension and history of CHF. Will require PT/OT evaluations and case management assessment. YAMILETH eval will be scheduled. Unclear patient can live safely in the community at this time. Initiate Pepcid 20 mg twice a day as patient describes abdominal pain with baby aspirin. Lovenox for DVT prophylaxis. Full code per patient request although I'm not sure she understood the conversation. Discussed with nursing, ER provider; past hospital records reviewed. 11/02/17 Patient remains very confused. Does not want to be here, but I strongly question her competency in regards to decision making capacity. It appears that there were similar concerns in 2014, but this has progressed. Will consult psychiatry for assessment. PT/OT eval pending, pt. will need YAMILETH. She clearly cannot care for herself at this point, so will continue hospital stay. Persistent Hypokalemia despite replacement. Will initiate IV replacement therapy. She continues to require monitoring for both her hypokalemia and elevated BP. Will change to inpatient status. Order telemetry monitoring during IV replacement, and to further assess irregular rhythm heard on exam. Patient remains very hypertensive, but has been refusing antihypertensive medications. Will start her on Clonidine TTS for now, but will need to monitor for sedation in an inpatient setting. Legs remain grossly abnormal. Would consider biopsy of lesions to R/O lymphoma. Edema is better. EF is unknown. Pt was not voiding last night - if persists, we may need to place a [place]. Will repeat CXR given one done last night was grossly abnormal, concern for poor study. Will need SW involvement. Continue to monitor labs. Old chart reviewed. 11/03/17 Psych evaluated pt and has ordered Vit B12 and folate. Rec replace B12 if < 400. Indicates patient has capacity to name daughter as medical DPOA. Dr. Curran has spoke with her daughter and they have agreed on DO NOT INTUBATE status. Persistent hypokalemia - potassium supplemented p.o. Repeat BMP in a.m. to follow electrolytes. Taking K-Phos. Pt willing to take Diflucan for her onychomycosis. Refusing any IV meds and fluids at present. Patient remains very hypertensive, but has been refusing antihypertensive medications. Wound clinic recommendation is to contact nurse who specializes in lymphedema. Case management to look into placement opts. OT rec SNU. YAMILETH 6.5. Psych evaluated pt. Dx with Major neurocognitive disorder Participated in [facility] and scored an 11/30, indicating a neurocognitive disorder. She has gross deficits in working memory. Patient lacks capacity to make her own medical decisions though she would like to name her daughter medical DPOA and does have the capacity to do so. 11/04/17 Potassium with decrease to 2.8 this am. Phos improved to 4.3. Creatinine stable at 0.6 but CO2 increased to 32. Will stop KPhos and increase oral KCl to 20meg TID with meals. Continue Cozaar 50mg daily for BP. Will continue oral Lasix and spironolactone to help decrease edema/volume. Did agree to these medications. Vitamin B12 low normal at 255 - will start oral B12 (pt's likely to refuse IM injection). Elevate legs at rest as much as possible. PT/OT to help improve functional status.
[2017-11-04] MEDS: SALINE FLUSH 10ml SYRINGE IVF PRN ×2 (15:13→16:40)
[2017-11-04] MEDS ORDERED: AMLODIPINE 10 MG TABLET PO ONE (17:01)
[2017-11-05] MEDS: HYDRALAZINE 20 MG/ML INJECTION IVP PRN (04:28)
[2017-11-05] MEDS: ENOXAPARIN 40 MG/0.4 ML INJECTION SQ SCH (08:24)
[2017-11-05] MEDS: POLYETHYL GLYCOL 3350 17gm PACKET PO SCH (08:27)
[2017-11-05] MEDS: FLUCONAZOLE 150 MG TABLET PO SCH (08:27)
[2017-11-05] MEDS: FUROSEMIDE 40 MG/4 ML ORAL LIQUID PO SCH (08:28)
[2017-11-05] MEDS: CYANOCOBALAMIN (B-12) 500mcg TABLET PO SCH (08:28)
[2017-11-05] MEDS: FAMOTIDINE 20 MG TABLET PO SCH ×2 (08:28→20:42)
[2017-11-05] MEDS: LOSARTAN 50 MG TABLET PO SCH (08:29)
[2017-11-05] MEDS: SPIRONOLACTONE 25 MG TABLET PO SCH (08:29)
[2017-11-05] MEDS: PHOSPHORUS 250 MG TABLET PO SCH (09:20)
[2017-11-05] MEDS: LORazepam 1 MG TABLET PO PRN ×2 (10:53→20:42)
--- NOTE | 2017-11-05 12:42 | Progress Note ---
- Date 11/05/17 Subjective: F/U: Hypokalemia, LE edema, Leg weakness Doing fair this morning. Reluctant to take medication, but did take her oral meds. Refused Lovenox. Reports to nursing wanting to go home. Nursing did have patient ambulated out in halls to help give her a change of scenery. Breathing well. No chest pressure or pain. Notes swelling and some discomfort to legs. Objective Vital signs: Temperature 97.8 F 11/05/17 07:12 Pulse Rate 86 11/05/17 07:12 Respiratory Rate 16 11/05/17 07:12 Blood Pressure 151/81 H 11/05/17 07:12 Pulse Oximetry 96 11/05/17 07:12 Rhythm: Bundle Branch Block Height/Weight/BMI: Weight 97.5 kg - Constitutional Present: well nourished, well developed, obese - Routine HEENT Exam Head: Present: normocephalic, atraumatic Eye: Present: EOMI, PERRL ENT: Present: mucous membranes moist - Routine Respiratory Exam Present: decreased breath sounds. Absent: respiratory distress, wheezes, crackles - Routine Cardiovascular Exam Present: RRR, no murmur - Routine Abdominal Exam Present: soft, normoactive bowel sounds, non distended, non tender - Routine Extremities Exam Present: edema. Absent: cyanosis, clubbing - Routine Musculoskeletal Exam Musculoskeletal: Present: no clubbing or cyanosis - Routine Skin Exam Present: dry, warm - Routine Neurological Exam Present: alert, CN II-XII intact, moving all extremities, vision grossly intact , hearing grossly intact. Absent: motor deficit - Routine Psychiatric Exam Present: normal affect. Absent: anxious, agitated Results - Labs CBC & Chem 7: 11/03/17 04:26 11/05/17 04:52 Assessment and Plan (1) Hypokalemia Current visit: Yes Status: Acute (2) Self-care deficit in patient living alone Current visit: Yes Status: Acute Assessment and Plan: Impression Hypokalemia (POA) Deficiency in self-care Edema/lymphedema w/ chronic skin changes of LE's Candidiasis/intertrigo Stasis dermatitis-severe Uncontrolled hypertension Major neurocognitive disorder Ambulatory dysfunction with falls Hyperbilirubinemia Reported history of CHF, CAD, hyperlipidemia - all untreated currently at presentation Onychomycosis Hypophosphatemia Low normal vitamin B12 Obesity with BMI 30.4 Plan Potassium still low at 2.9 this am. Phos improved to 4.3. Creatinine stable at 0.5. CO2 normal at 29. Blood pressure still elevated, but decreasing to 150 systolic. Increase Cozaar to 100mg daily for BP. Stop Lasix due to hypokalemia - will increase spironolactone to 50mg. May need to initiate Norvasc 5mg nightly if BP not showing improvement. Stop Lovenox as patient refusing - encourage continued ambulation to help with DVT prevention. Can change Pepcid to prn dyspepsia - attempt to minimize less essential medications. Patient's daughter plans to fly out from [place] tomorrow - will work with CM on discharge issues. With patient's significant neurocognitive disorder, doubt she will be able to return to independent living. Will recheck BMP, Mg, Phos in am secondary to hypokalemia and medication use. Case discussed with CM. Time spent with patient care 25 minutes. Resuscitation Status: Do Not Intubate - Time spent with patient Time with patient PN: 25 minutes - Physician Narrative Physician: Alcides Manning MD Narrative: Date: 11/05/17 Time: 1239 Hospital Course Summary Disclaimer: The visit summary below is not to be considered part of the above Progress Note. Hospital Course: 11/01/17 Resume diuretics, pain control, continue potassium replacement-received 60 mEq in the emergency room, reassess in a.m. before additional doses given. Etiology of hypokalemia unclear-mild hypokalemia present when she was in the emergency room in April 2017 but prior to that time potassium was normal. Topical antifungal's at present, cultures needed, may require biopsy of LE. Marked hypertension, will avoid calcium blockers due to lower extremity edema. Resume diuretics, losartan 50 mg tonight, hydralazine/labetalol IV as needed. Elevate legs. Tramadol for pain if needed. Records indicate intolerance of acetaminophen products. Chest x-ray will be obtained due to uncontrolled hypertension and history of CHF. Will require PT/OT evaluations and case management assessment. YAMILETH evelia will be scheduled. Unclear patient can live safely in the community at this time. Initiate Pepcid 20 mg twice a day as patient describes abdominal pain with baby aspirin. Lovenox for DVT prophylaxis. Full code per patient request although I'm not sure she understood the conversation. Discussed with nursing, ER provider; past hospital records reviewed. 11/02/17 Patient remains very confused. Does not want to be here, but I strongly question her competency in regards to decision making capacity. It appears that there were similar concerns in 2014, but this has progressed. Will consult psychiatry for assessment. PT/OT eval pending, pt. will need YAMILETH. She clearly cannot care for herself at this point, so will continue hospital stay. Persistent Hypokalemia despite replacement. Will initiate IV replacement therapy. She continues to require monitoring for both her hypokalemia and elevated BP. Will change to inpatient status. Order telemetry monitoring during IV replacement, and to further assess irregular rhythm heard on exam. Patient remains very hypertensive, but has been refusing antihypertensive medications. Will start her on Clonidine TTS for now, but will need to monitor for sedation in an inpatient setting. Legs remain grossly abnormal. Would consider biopsy of lesions to R/O lymphoma. Edema is better. EF is unknown. Pt was not voiding last night - if persists, we may need to place a [place]. Will repeat CXR given one done last night was grossly abnormal, concern for poor study. Will need SW involvement. Continue to monitor labs. Old chart reviewed. 11/03/17 Psych evaluated pt and has ordered Vit B12 and folate. Rec replace B12 if < 400. Indicates patient has capacity to name daughter as medical DPOA. Dr. Curran has spoke with her daughter and they have agreed on DO NOT INTUBATE status. Persistent hypokalemia - potassium supplemented p.o. Repeat BMP in a.m. to follow electrolytes. Taking K-Phos. Pt willing to take Diflucan for her onychomycosis. Refusing any IV meds and fluids at present. Patient remains very hypertensive, but has been refusing antihypertensive medications. Wound clinic recommendation is to contact nurse who specializes in lymphedema. Case management to look into placement opts. OT rec SNU. YAMILETH 6.5. Psych evaluated pt. Dx with Major neurocognitive disorder Participated in [facility] and scored an 11/30, indicating a neurocognitive disorder. She has gross deficits in working memory. Patient lacks capacity to make her own medical decisions though she would like to name her daughter medical DPOA and does have the capacity to do so. 11/04/17 Potassium with decrease to 2.8 this am. Phos improved to 4.3. Creatinine stable at 0.6 but CO2 increased to 32. Will stop KPhos and increase oral KCl to 20meg TID with meals. Continue Cozaar 50mg daily for BP. Will continue oral Lasix and spironolactone to help decrease edema/volume. Did agree to these medications. Norvasc 10mg given in afternoon as BP still with elevation. Vitamin B12 low normal at 255 - will start oral B12 (pt's likely to refuse IM injection). Elevate legs at rest as much as possible. PT/OT to help improve functional status. 11/05/17 Potassium still low at 2.9 this am. Phos improved to 4.3. Creatinine stable at 0.5. CO2 normal at 29. Blood pressure still elevated, but decreasing to 150 systolic. Increase Cozaar to 100mg daily for BP. Stop Lasix due to hypokalemia - will increase spironolactone to 50mg. May need to initiate Norvasc 5mg nightly if BP not showing improvement. Stop Lovenox as patient refusing - encourage continued ambulation to help with DVT prevention. Can change Pepcid to prn dyspepsia - attempt to minimize less essential medications. Patient's daughter plans to fly out from [place] tomorrow - will work with CM on discharge issues. With patient's significant neurocognitive disorder, doubt she will be able to return to independent living.
[2017-11-05] MEDS: ACETAMINOPHEN 500 MG TABLET PO PRN (13:13)
[2017-11-05] MEDS: SPIRONOLACTONE 50 MG TABLET PO SCH (14:51)
[2017-11-05] MEDS: AMLODIPINE 5 MG TABLET PO SCH (20:42)
[2017-11-06] MEDS: CYANOCOBALAMIN (B-12) 500mcg TABLET PO SCH (09:15)
[2017-11-06] MEDS: FAMOTIDINE 20 MG TABLET PO SCH (09:16)
[2017-11-06] MEDS: SPIRONOLACTONE 50 MG TABLET PO SCH (09:16)
[2017-11-06] MEDS: ENOXAPARIN 40 MG/0.4 ML INJECTION SQ SCH ×2 (09:16→09:46)
[2017-11-06] MEDS: FLUCONAZOLE 150 MG TABLET PO SCH (09:16)
[2017-11-06] MEDS: LOSARTAN 100 MG TABLET PO SCH (09:16)
[2017-11-06] MEDS: POLYETHYL GLYCOL 3350 17gm PACKET PO SCH (09:30)
[2017-11-06] MEDS ORDERED: FAMOTIDINE 20 MG TABLET PO PRN (16:19)
--- NOTE | 2017-11-06 19:58 | Progress Note ---
- Date 11/06/17 Subjective: F/U: Hypokalemia, LE edema, Leg weakness Sleeping most of day. I checked on patient before noon (and visited at length with her daughter) but she was sleeping. Checked back mid afternoon and before dinner-sleeping. This evening, checked again and while sleeping was easily awakened. Doing okay. Ate okay for lunch. Breathing well. No specific new problems. Objective Vital signs: Temperature 97.3 F 11/06/17 18:45 Pulse Rate 79 11/06/17 18:45 Respiratory Rate 20 11/06/17 18:45 Blood Pressure 162/65 H 11/06/17 18:45 Pulse Oximetry 92 11/06/17 18:45 Rhythm: Bundle Branch Block Height/Weight/BMI: Weight 100.7 kg - Constitutional Present: well nourished, well developed, obese, cooperative - Routine HEENT Exam Head: Present: normocephalic, atraumatic Eye: Present: EOMI, PERRL ENT: Present: mucous membranes moist - Routine Respiratory Exam Present: decreased breath sounds. Absent: rales, respiratory distress, rhonchi , wheezes, crackles - Routine Cardiovascular Exam Present: RRR, no murmur - Routine Abdominal Exam Present: soft, normoactive bowel sounds, non distended, non tender - Routine Extremities Exam Present: edema (+2 BLE). Absent: cyanosis, clubbing - Routine Musculoskeletal Exam Musculoskeletal: Present: no clubbing or cyanosis - Routine Skin Exam Present: dry, warm - Routine Neurological Exam Present: alert, CN II-XII intact, moving all extremities, vision grossly intact , hearing grossly intact, normal speech. Absent: motor deficit, altered mental status - Routine Psychiatric Exam Present: normal affect. 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 Blood pressure gradually decreasing. Will continue with Cozaar, Norvasc, Spironolactone and potassium replacement. Discussed with daughter about neurocognitive disorder. DPOA paperwork done today. Psych not feeling patient able to direct care more than determining DPOA. Looking into Skilled Care at [facility]. Uncertain if patient will improve enough to be able to return home. Daughter would like patient to be able to transition to Skilled as soon as able to allow patient to begin integration there. Will recheck lab tomorrow - hope to see improvement of potassium to allow for discharge. Case discussed with CM and patient's daughter. Time spent with patient care 35 minutes. DVT Prophylaxis: other (Ambuation - refuses Lovenox) Resuscitation Status: Do Not Intubate - Time spent with patient Time with patient PN: 35 minutes - Physician Narrative Physician: Alcides Manning MD Narrative: Date: 11/06/17 Time: 1953 Hospital Course Summary Disclaimer: The visit summary below is not to be considered part of the above Progress Note. Hospital Course: 11/01/17 Resume diuretics, pain control, continue potassium replacement-received 60 mEq in the emergency room, reassess in a.m. before additional doses given. Etiology of hypokalemia unclear-mild hypokalemia present when she was in the emergency room in April 2017 but prior to that time potassium was normal. Topical antifungal's at present, cultures needed, may require biopsy of LE. Marked hypertension, will avoid calcium blockers due to lower extremity edema. Resume diuretics, losartan 50 mg tonight, hydralazine/labetalol IV as needed. Elevate legs. Tramadol for pain if needed. Records indicate intolerance of acetaminophen products. Chest x-ray will be obtained due to uncontrolled hypertension and history of CHF. Will require PT/OT evaluations and case management assessment. YAMILETH evelia will be scheduled. Unclear patient can live safely in the community at this time. Initiate Pepcid 20 mg twice a day as patient describes abdominal pain with baby aspirin. Lovenox for DVT prophylaxis. Full code per patient request although I'm not sure she understood the conversation. Discussed with nursing, ER provider; past hospital records reviewed. 11/02/17 Patient remains very confused. Does not want to be here, but I strongly question her competency in regards to decision making capacity. It appears that there were similar concerns in 2015, but this has progressed. Will consult psychiatry for assessment. PT/OT eddieal pending, pt. will need YAMILETH. She clearly cannot care for herself at this point, so will continue hospital stay. Persistent Hypokalemia despite replacement. Will initiate IV replacement therapy. She continues to require monitoring for both her hypokalemia and elevated BP. Will change to inpatient status. Order telemetry monitoring during IV replacement, and to further assess irregular rhythm heard on exam. Patient remains very hypertensive, but has been refusing antihypertensive medications. Will start her on Clonidine TTS for now, but will need to monitor for sedation in an inpatient setting. Legs remain grossly abnormal. Would consider biopsy of lesions to R/O lymphoma. Edema is better. EF is unknown. Pt was not voiding last night - if persists, we may need to place a Alford. Will repeat CXR given one done last night was grossly abnormal, concern for poor study. Will need SW involvement. Continue to monitor labs. Old chart reviewed. 11/03/17 Psych evaluated pt and has ordered Vit B12 and folate. Rec replace B12 if < 400. Indicates patient has capacity to name daughter as medical DPOA. Dr. Curran has spoke with her daughter and they have agreed on DO NOT INTUBATE status. Persistent hypokalemia - potassium supplemented p.o. Repeat BMP in a.m. to follow electrolytes. Taking K-Phos. Pt willing to take Diflucan for her onychomycosis. Refusing any IV meds and fluids at present. Patient remains very hypertensive, but has been refusing antihypertensive medications. Wound clinic recommendation is to contact nurse who specializes in lymphedema. Case management to look into placement opts. OT rec SNU. YAMILETH 6.5. Psych evaluated pt. Dx with Major neurocognitive disorder Participated in [facility] and scored an 11/30, indicating a neurocognitive disorder. She has gross deficits in working memory. Patient lacks capacity to make her own medical decisions though she would like to name her daughter medical DPOA and does have the capacity to do so. 11/04/17 Potassium with decrease to 2.8 this am. Phos improved to 4.3. Creatinine stable at 0.6 but CO2 increased to 32. Will stop KPhos and increase oral KCl to 20meg TID with meals. Continue Cozaar 50mg daily for BP. Will continue oral Lasix and spironolactone to help decrease edema/volume. Did agree to these medications. Norvasc 10mg given in afternoon as BP still with elevation. Vitamin B12 low normal at 255 - will start oral B12 (pt's likely to refuse IM injection). Elevate legs at rest as much as possible. PT/OT to help improve functional status. 11/05/17 Potassium still low at 2.9 this am. Phos improved to 4.3. Creatinine stable at 0.5. CO2 normal at 29. Blood pressure still elevated, but decreasing to 150 systolic. Increase Cozaar to 100mg daily for BP. Stop Lasix due to hypokalemia - will increase spironolactone to 50mg. May need to initiate Norvasc 5mg nightly if BP not showing improvement. Stop Lovenox as patient refusing - encourage continued ambulation to help with DVT prevention. Can change Pepcid to prn dyspepsia - attempt to minimize less essential medications. Patient's daughter plans to fly out from [place] tomorrow - will work with CM on discharge issues. With patient's significant neurocognitive disorder, doubt she will be able to return to independent living. 11/06/17 Lab showing hemolysis - potassium falsely elevated. Blood pressure gradually decreasing. Slept most of day. Daughter in from [place]. Will continue with Cozaar, Norvasc, Spironolactone and potassium replacement. Discussed with daughter about neurocognitive disorder. DPOA paperwork done today. Psych not feeling patient able to direct care more than determining DPOA. Looking into Skilled Care at [facility]. Uncertain if patient will improve enough to be able to return home. Daughter would like patient to be able to transition to Skilled as soon as able to allow patient to begin integration there. Will recheck lab tomorrow - hope to see improvement of potassium to allow for discharge.
[2017-11-06] MEDS: AMLODIPINE 5 MG TABLET PO SCH (20:34)
[2017-11-07] MEDS: CYANOCOBALAMIN (B-12) 500mcg TABLET PO SCH (08:26)
[2017-11-07] MEDS: FLUCONAZOLE 150 MG TABLET PO SCH (08:26)
[2017-11-07] MEDS: LOSARTAN 100 MG TABLET PO SCH (08:28)
[2017-11-07] MEDS: SPIRONOLACTONE 50 MG TABLET PO SCH (08:31)
[2017-11-07] MEDS: POLYETHYL GLYCOL 3350 17gm PACKET PO SCH (08:35)
--- NOTE | 2017-11-07 14:55 | Progress Note ---
- Date 11/07/17 Subjective: Patient seen today after lunch. She was sleeping but aroused easily to her name. She has no complaints. No CP, SOA, f/c, n/v. Objective Vital signs: Temperature 96.7 F L 11/07/17 13:00 Pulse Rate 75 11/07/17 13:00 Respiratory Rate 14 11/07/17 13:00 Blood Pressure 160/84 H 11/07/17 13:00 Pulse Oximetry 95 11/07/17 13:00 Height/Weight/BMI: Weight 99.2 kg - Constitutional Present: no acute distress, well nourished, well developed - Routine HEENT Exam Head: Present: normocephalic, atraumatic - Routine Respiratory Exam Present: CTA bilaterally. Absent: wheezes - Routine Cardiovascular Exam Present: RRR, no murmur - Routine Abdominal Exam Present: soft, non distended, non tender - Routine Extremities Exam Present: normal capillary refill Comments: chronic hypertrophic skin changes to the skin likely r/t lymphedema. - Routine Skin Exam Present: dry, warm - Routine Neurological Exam Present: alert, normal speech - Routine Lymphatic Exam Lymphatic: Absent: adenopathy - Routine Psychiatric Exam Present: normal affect, cooperative Results - Labs CBC & Chem 7: 11/03/17 04:26 11/07/17 05:16 Assessment and Plan (1) Hypokalemia Current visit: Yes Status: Acute (2) Self-care deficit in patient living alone Current visit: Yes Status: Acute Assessment and Plan: Impression Hypokalemia (POA) Deficiency in self-care Edema/lymphedema w/ chronic skin changes of LE's Candidiasis/intertrigo Stasis dermatitis-severe Hypertension Major neurocognitive disorder Ambulatory dysfunction with falls Hyperbilirubinemia Reported history of CHF, CAD, hyperlipidemia - all untreated currently at presentation Onychomycosis Low normal vitamin B12 Obesity with BMI 30.4 Plan Potassium has normalized. Sodium slightly low today, otherwise labs stable. BP's much improved from admission, but still Stage 2. Will continue with Cozaar , Spironolactone and potassium replacement and increase Norvasc from 5mg to 10mg. Still working on placement. DVT Prophylaxis: other (Ambulation-patent refusing other options. ) Resuscitation Status: Do Not Intubate - Time spent with patient Time with patient PN: 25 minutes - Physician Narrative Physician: Alcides Manning MD Narrative: Date: 11/07/17 Time: 1722 Have independently interviewed and examined pt. Chart reviewed. Case discussed with CM, pt's daughter, and PA. Care plan developed with my supervision; agree with above. Doing okay. Slept a lot today, but awake and alert this evening. Reports not been up much. Eating well. Breathing well. No ab pain or nausea. Lungs: decreased, no distress on RA CV: regular AB: soft nt/nd BS decreased EXT: LE edema about the same. MSE: awake alert Plan: Will continue with BP medications - potassium finally normalized. Discussed with patient at length about the critical need for Skilled Care post discharge; daughter at bedside as well strongly encouraging skilled care. With patient's weakness and cog decline, not safe for discharge to home. CM working on discharge dispositions-looking into multiple options. Hospital Course Summary Disclaimer: The visit summary below is not to be considered part of the above Progress Note. Hospital Course: 11/01/17 Resume diuretics, pain control, continue potassium replacement-received 60 mEq in the emergency room, reassess in a.m. before additional doses given. Etiology of hypokalemia unclear-mild hypokalemia present when she was in the emergency room in April 2017 but prior to that time potassium was normal. Topical antifungal's at present, cultures needed, may require biopsy of LE. Marked hypertension, will avoid calcium blockers due to lower extremity edema. Resume diuretics, losartan 50 mg tonight, hydralazine/labetalol IV as needed. Elevate legs. Tramadol for pain if needed. Records indicate intolerance of acetaminophen products. Chest x-ray will be obtained due to uncontrolled hypertension and history of CHF. Will require PT/OT evaluations and case management assessment. YAMILETH altamirano will be scheduled. Unclear patient can live safely in the community at this time. Initiate Pepcid 20 mg twice a day as patient describes abdominal pain with baby aspirin. Lovenox for DVT prophylaxis. Full code per patient request although I'm not sure she understood the conversation. Discussed with nursing, ER provider; past hospital records reviewed. 11/02/17 Patient remains very confused. Does not want to be here, but I strongly question her competency in regards to decision making capacity. It appears that there were similar concerns in 2014, but this has progressed. Will consult psychiatry for assessment. PT/OT eval pending, pt. will need YAMILETH. She clearly cannot care for herself at this point, so will continue hospital stay. Persistent Hypokalemia despite replacement. Will initiate IV replacement therapy. She continues to require monitoring for both her hypokalemia and elevated BP. Will change to inpatient status. Order telemetry monitoring during IV replacement, and to further assess irregular rhythm heard on exam. Patient remains very hypertensive, but has been refusing antihypertensive medications. Will start her on Clonidine TTS for now, but will need to monitor for sedation in an inpatient setting. Legs remain grossly abnormal. Would consider biopsy of lesions to R/O lymphoma. Edema is better. EF is unknown. Pt was not voiding last night - if persists, we may need to place a Alford. Will repeat CXR given one done last night was grossly abnormal, concern for poor study. Will need SW involvement. Continue to monitor labs. Old chart reviewed. 11/03/17 Psych evaluated pt and has ordered Vit B12 and folate. Rec replace B12 if < 400. Indicates patient has capacity to name daughter as medical DPOA. Dr. Curran has spoke with her daughter and they have agreed on DO NOT INTUBATE status. Persistent hypokalemia - potassium supplemented p.o. Repeat BMP in a.m. to follow electrolytes. Taking K-Phos. Pt willing to take Diflucan for her onychomycosis. Refusing any IV meds and fluids at present. Patient remains very hypertensive, but has been refusing antihypertensive medications. Wound clinic recommendation is to contact nurse who specializes in lymphedema. Case management to look into placement opts. OT rec SNU. YAMILETH 6.5. Psych evaluated pt. Dx with Major neurocognitive disorder Participated in [facility] and scored an 11/30, indicating a neurocognitive disorder. She has gross deficits in working memory. Patient lacks capacity to make her own medical decisions though she would like to name her daughter medical DPOA & does have the capacity to do so. 11/04/17 Potassium with decrease to 2.8 this am. Phos improved to 4.3. Creatinine stable at 0.6 but CO2 increased to 32. Will stop KPhos and increase oral KCl to 20meg TID with meals. Continue Cozaar 50mg daily for BP. Will continue oral Lasix and spironolactone to help decrease edema/volume. Did agree to these medications. Norvasc 10mg given in afternoon as BP still with elevation. Vitamin B12 low normal at 255 - will start oral B12 (pt's likely to refuse IM injection). Elevate legs at rest as much as possible. PT/OT to help improve functional status. 11/05/17 Potassium still low at 2.9 this am. Phos improved to 4.3. Creatinine stable at 0.5. CO2 normal at 29. Blood pressure still elevated, but decreasing to 150 systolic. Increase Cozaar to 100mg daily for BP. Stop Lasix due to hypokalemia - will increase spironolactone to 50mg. May need to initiate Norvasc 5mg nightly if BP not showing improvement. Stop Lovenox as patient refusing - encourage continued ambulation to help with DVT prevention. Can change Pepcid to prn dyspepsia - attempt to minimize less essential medications. Patient's daughter plans to fly out from [place] tomorrow - will work with on discharge issues. With patient's significant neurocognitive disorder, doubt she will be able to return to independent living. 11/06/17 Lab showing hemolysis - potassium falsely elevated. Blood pressure gradually decreasing. Slept most of day. Daughter in from [place]. Will continue with Cozaar, Norvasc, Spironolactone and potassium replacement. Discussed with daughter about neurocognitive disorder. DPOA paperwork done today. Psych not feeling patient able to direct care more than determining DPOA. Looking into Skilled Care at [facility]. Uncertain if patient will improve enough to be able to return home. Daughter would like patient to be able to transition to Skilled as soon as able to allow patient to begin integration there. Will recheck lab tomorrow - hope to see improvement of potassium to allow for discharge. 11/07/17 Potassium has normalized at 3.6. Sodium slightly low today, otherwise labs stable. BP's much improved from admission, but still Stage 2. Will continue with Cozaar , Spironolactone & potassium replacement & increase Norvasc from 5mg to 10mg. Still working on placement.
[2017-11-07] MEDS: LORazepam 1 MG TABLET PO PRN (23:31)
[2017-11-07] MEDS: AMLODIPINE 10 MG TABLET PO SCH (23:34)
[2017-11-08] MEDS: TRAMADOL 50 MG TABLET PO PRN ×2 (04:02→22:05)
[2017-11-08] MEDS: CYANOCOBALAMIN (B-12) 500mcg TABLET PO SCH (08:47)
[2017-11-08] MEDS: SPIRONOLACTONE 50 MG TABLET PO SCH (08:48)
[2017-11-08] MEDS: LOSARTAN 100 MG TABLET PO SCH (08:48)
[2017-11-08] MEDS: FLUCONAZOLE 150 MG TABLET PO SCH (08:48)
[2017-11-08] MEDS: POLYETHYL GLYCOL 3350 17gm PACKET PO SCH (08:56)
--- NOTE | 2017-11-08 09:36 | Progress Note ---
- Date 11/08/17 Subjective: Suzanna reports feeling well this morning, except that her legs are "yucky" -- however she clarified that this is chronic. She has no new complaints and specifically denies chest pain, dyspnea, dizziness/lightheadedness abdominal pain, nausea, or constipation. She feels a little weak when she gets up to ambulate but once she's up her weakness subsides. Objective Vital signs: Temperature 96.1 F L 11/08/17 08:20 Pulse Rate 78 11/08/17 08:20 Respiratory Rate 16 11/08/17 08:20 Blood Pressure 186/94 H 11/08/17 08:20 Pulse Oximetry 95 11/08/17 08:20 Rhythm: Bundle Branch Block Height/Weight/BMI: Weight 95.8 kg - Constitutional Present: no acute distress, well nourished, well developed - Routine HEENT Exam Head: Present: normocephalic Eye: Present: PERRL. Absent: conjunctival icterus, scleral injection - Routine Respiratory Exam Present: CTA bilaterally - Routine Cardiovascular Exam Present: RRR, S1, S2 - Routine Abdominal Exam Present: soft, normoactive bowel sounds, non distended, non tender - Routine Extremities Exam Present: edema (BLE suspect lymphedema) - Routine Skin Exam Present: dry, warm Comments: hypertrophic skin changes to BLE - Routine Neurological Exam Present: alert, oriented X3, normal speech - Routine Psychiatric Exam Present: normal affect, normal thought process, cooperative Results - Labs CBC & Chem 7: 11/03/17 04:26 11/08/17 11:50 Assessment and Plan (1) Hypokalemia Current visit: Yes Status: Acute (2) Self-care deficit in patient living alone Current visit: Yes Status: Acute Assessment and Plan: Impression Hypokalemia (POA) Deficiency in self-care Edema/lymphedema w/ chronic skin changes of LE's Candidiasis/intertrigo Stasis dermatitis-severe Hypertension Major neurocognitive disorder Ambulatory dysfunction with falls Hyperbilirubinemia Reported history of CHF, CAD, hyperlipidemia - all untreated currently at presentation Onychomycosis Low normal vitamin B12 Obesity with BMI 30.4 Plan K was 4.8 this morning - though specimen was hemolyzed. Yesterday K was 3.6 - Will draw a new sample around noon. BP still elevated, though improved from admission. Norvasc was increased to 10 mg last night. Continue Cozaar and spironolactone. Lasix remains on hold. Recheck BMP and mg in am. Resuscitation Status: Do Not Intubate - Physician Narrative Physician: Alcides Manning MD Narrative: Date: 11/08/17 Time: 1428 Have independently interviewed and examined pt. Chart reviewed. Case discussed with my [employer] SUPERVISOR. Care plan developed with my supervision; agree with above. Was sitting up in chair when I came in; awakened easily. Reports would like IV site out. Not reporting specific problems. Breathing well. No ab pain or nausea. Has been eating well-feels like getting enough. Daughter reports very restless evening - could not sleep, more confused/agitated/hallucinating. Daughter came in around midnight to be with pt. Lungs: Decreased, no distress CV: regular AB: soft nt MSE: awake alert Plan: Will start Haldol 0.5mg night to help sleep and improve behaviors. Can stop potassium tablets as potassium normalized. Continue antihypertensives. Encourage ambulation for strengthening. CM continue to look into discharge facilities. Discussed care with daughter. Hospital Course Summary Disclaimer: The visit summary below is not to be considered part of the above Progress Note. Hospital Course: 11/01/17 Resume diuretics, pain control, continue potassium replacement-received 60 mEq in the emergency room, reassess in a.m. before additional doses given. Etiology of hypokalemia unclear-mild hypokalemia present when she was in the emergency room in April 2017 but prior to that time potassium was normal. Topical antifungal's at present, cultures needed, may require biopsy of LE. Marked hypertension, will avoid calcium blockers due to lower extremity edema. Resume diuretics, losartan 50 mg tonight, hydralazine/labetalol IV as needed. Elevate legs. Tramadol for pain if needed. Records indicate intolerance of acetaminophen products. Chest x-ray will be obtained due to uncontrolled hypertension and history of CHF. Will require PT/OT evaluations and case management assessment. YAMILETH altamirano will be scheduled. Unclear patient can live safely in the community at this time. Initiate Pepcid 20 mg twice a day as patient describes abdominal pain with baby aspirin. Lovenox for DVT prophylaxis. Full code per patient request although I'm not sure she understood the conversation. Discussed with nursing, ER provider; past hospital records reviewed. 11/02/17 Patient remains very confused. Does not want to be here, but I strongly question her competency in regards to decision making capacity. It appears that there were similar concerns in 2015, but this has progressed. Will consult psychiatry for assessment. PT/OT eval pending, pt. will need YAMILETH. She clearly cannot care for herself at this point, so will continue hospital stay. Persistent Hypokalemia despite replacement. Will initiate IV replacement therapy. She continues to require monitoring for both her hypokalemia and elevated BP. Will change to inpatient status. Order telemetry monitoring during IV replacement, and to further assess irregular rhythm heard on exam. Patient remains very hypertensive, but has been refusing antihypertensive medications. Will start her on Clonidine TTS for now, but will need to monitor for sedation in an inpatient setting. Legs remain grossly abnormal. Would consider biopsy of lesions to R/O lymphoma. Edema is better. EF is unknown. Pt was not voiding last night - if persists, we may need to place a Alford. Will repeat CXR given one done last night was grossly abnormal, concern for poor study. Will need SW involvement. Continue to monitor labs. Old chart reviewed. 11/03/17 Psych evaluated pt and has ordered Vit B12 and folate. Rec replace B12 if < 400. Indicates patient has capacity to name daughter as medical DPOA. Dr. Curran has spoke with her daughter and they have agreed on DO NOT INTUBATE status. Persistent hypokalemia - potassium supplemented p.o. Repeat BMP in a.m. to follow electrolytes. Taking K-Phos. Pt willing to take Diflucan for her onychomycosis. Refusing any IV meds and fluids at present. Patient remains very hypertensive, but has been refusing antihypertensive medications. Wound clinic recommendation is to contact nurse who specializes in lymphedema. Case management to look into placement opts. OT rec SNU. YAMILETH 6.5. Psych evaluated pt. Dx with Major neurocognitive disorder Participated in [employer] and scored an 11/30, indicating a neurocognitive disorder. She has gross deficits in working memory. Patient lacks capacity to make her own medical decisions though she would like to name her daughter medical DPOA & does have the capacity to do so. 11/04/17 Potassium with decrease to 2.8 this am. Phos improved to 4.3. Creatinine stable at 0.6 but CO2 increased to 32. Will stop KPhos and increase oral KCl to 20meg TID with meals. Continue Cozaar 50mg daily for BP. Will continue oral Lasix and spironolactone to help decrease edema/volume. Did agree to these medications. Norvasc 10mg given in afternoon as BP still with elevation. Vitamin B12 low normal at 255 - will start oral B12 (pt's likely to refuse IM injection). Elevate legs at rest as much as possible. PT/OT to help improve functional status. 11/05/17 Potassium still low at 2.9 this am. Phos improved to 4.3. Creatinine stable at 0.5. CO2 normal at 29. Blood pressure still elevated, but decreasing to 150 systolic. Increase Cozaar to 100mg daily for BP. Stop Lasix due to hypokalemia - will increase spironolactone to 50mg. May need to initiate Norvasc 5mg nightly if BP not showing improvement. Stop Lovenox as patient refusing - encourage continued ambulation to help with DVT prevention. Can change Pepcid to prn dyspepsia - attempt to minimize less essential medications. Patient's daughter plans to fly out from [place] tomorrow - will work with CM on discharge issues. With patient's significant neurocognitive disorder, doubt she will be able to return to independent living. 11/06/17 Lab showing hemolysis - potassium falsely elevated. Blood pressure gradually decreasing. Slept most of day. Daughter in from [place]. Will continue with Cozaar, Norvasc, Spironolactone and potassium replacement. Discussed with daughter about neurocognitive disorder. DPOA paperwork done today. Psych not feeling patient able to direct care more than determining DPOA. Looking into Skilled Care at [facility]. Uncertain if patient will improve enough to be able to return home. Daughter would like patient to be able to transition to Skilled as soon as able to allow patient to begin integration there. Will recheck lab tomorrow - hope to see improvement of potassium to allow for discharge. 11/07/17 Potassium has normalized at 3.6. Sodium slightly low today, otherwise labs stable. BP's much improved from admission, but still Stage 2. Will continue with Cozaar , Spironolactone & potassium replacement & increase Norvasc from 5mg to 10mg. Still working on placement. 6/16/18 K was 4.8 this morning - though specimen was hemolyzed (yesterday K was 3.6); repeat without hemolysis 4.6. Will stop oral potassium. Recheck tomorrow. BP still elevated, though improved from admission. Norvasc was increased to 10 mg last night. Continue Cozaar and spironolactone. Lasix remains on hold. Had restless night - couldn't sleep, agitation. Will start Haldol 0.5mg at HS.
[2017-11-08] MEDS ORDERED: TRAMADOL 50 MG TABLET PO SCH (15:00)
[2017-11-08] MEDS: SALINE FLUSH 10ml SYRINGE IVF PRN (17:10)
[2017-11-08] MEDS: HYDRALAZINE 20 MG/ML INJECTION IVP PRN (18:31)
[2017-11-08] MEDS: AMLODIPINE 10 MG TABLET PO SCH (22:05)
[2017-11-08] MEDS: HALOPERIDOL 0.5 MG TABLET PO SCH (22:05)
[2017-11-09] MEDS ORDERED: CLONIDINE 0.2 MG/24 HR PATCH TD SCH (09:00)
[2017-11-09] MEDS: POLYETHYL GLYCOL 3350 17gm PACKET PO SCH (10:18)
[2017-11-09] MEDS: SPIRONOLACTONE 50 MG TABLET PO SCH (10:19)
[2017-11-09] MEDS: CYANOCOBALAMIN (B-12) 500mcg TABLET PO SCH (10:19)
[2017-11-09] MEDS: LOSARTAN 100 MG TABLET PO SCH (10:20)
[2017-11-09] MEDS: FLUCONAZOLE 150 MG TABLET PO SCH (10:20)
[2017-11-09] MEDS ORDERED: CLONIDINE PATCH REMOVAL TD SCH (11:00)
--- NOTE | 2017-11-09 11:10 | Progress Note ---
- Date 11/09/17 Subjective: F/U: Hypokalemia, LE edema, Leg weakness Doing okay this morning. Reports slept well. Breathing well. No chest pain. Reports has been up walking with nursing. Denies feeling dizzy or lightheaded with positional changes. Appetite okay. Bowel feel stable. Worries skin on legs getting too dry. Edema staying stable. Objective Vital signs: Temperature 96.2 F L 11/09/17 07:54 Pulse Rate 75 11/09/17 07:54 Respiratory Rate 18 11/09/17 07:54 Blood Pressure 155/75 H 11/09/17 07:54 Pulse Oximetry 97 11/09/17 07:54 Rhythm: Bundle Branch Block Height/Weight/BMI: Weight 97.2 kg - Constitutional Present: well nourished, well developed, average body habitus - Routine HEENT Exam Head: Present: normocephalic, atraumatic Eye: Present: EOMI, PERRL - Routine Respiratory Exam Present: CTA bilaterally. Absent: rales, respiratory distress, rhonchi, stridor , wheezes, crackles - Routine Cardiovascular Exam Present: RRR, no murmur - Routine Abdominal Exam Present: soft, normoactive bowel sounds, non distended, non tender - Routine Extremities Exam Present: edema (+2 BLE). Absent: cyanosis, clubbing - Routine Skin Exam Present: intact, dry, warm - Routine Neurological Exam Present: alert, CN II-XII intact, moving all extremities, vision grossly intact , hearing grossly intact, normal speech. Absent: motor deficit - Routine Psychiatric Exam Present: normal affect. Absent: anxious, agitated, paranoid Results - Labs CBC & Chem 7: 11/03/17 04:26 11/09/17 04:59 Assessment and Plan (1) Hypokalemia Current visit: Yes Status: Acute (2) Self-care deficit in patient living alone Current visit: Yes Status: Acute Assessment and Plan: Impression Hypokalemia (POA) Deficiency in self-care Edema/lymphedema w/ chronic skin changes of LE's Candidiasis/intertrigo Stasis dermatitis-severe Hypertension Major neurocognitive disorder Ambulatory dysfunction with falls Hyperbilirubinemia Reported history of CHF, CAD, hyperlipidemia - all untreated currently at presentation Onychomycosis Low normal vitamin B12 Obesity with BMI 30.4 Plan Potassium normal at 4.4. Creatinine stable. Continue with blood pressure medications. Will change Nystatin powder to lotion to help moisturize skin on legs. Continue Diflucan. Continue elevation. Encourage ambulation. Stressed importance of skilled care post discharge. Will recheck BMP in am due to medication use. Case discussed with patient's daughter. Time spent with patient care 25 minutes. DVT Prophylaxis: other (Ambulation) Resuscitation Status: Do Not Intubate - Time spent with patient Time with patient PN: 25 minutes - Physician Narrative Physician: Alcides Manning MD Narrative: Date: 11/09/17 Time: 1107 Hospital Course Summary Disclaimer: The visit summary below is not to be considered part of the above Progress Note. Hospital Course: 11/01/17 Resume diuretics, pain control, continue potassium replacement-received 60 mEq in the emergency room, reassess in a.m. before additional doses given. Etiology of hypokalemia unclear-mild hypokalemia present when she was in the emergency room in April 2017 but prior to that time potassium was normal. Topical antifungal's at present, cultures needed, may require biopsy of LE. Marked hypertension, will avoid calcium blockers due to lower extremity edema. Resume diuretics, losartan 50 mg tonight, hydralazine/labetalol IV as needed. Elevate legs. Tramadol for pain if needed. Records indicate intolerance of acetaminophen products. Chest x-ray will be obtained due to uncontrolled hypertension and history of CHF. Will require PT/OT evaluations and case management assessment. YAMILETH eval will be scheduled. Unclear patient can live safely in the community at this time. Initiate Pepcid 20 mg twice a day as patient describes abdominal pain with baby aspirin. Lovenox for DVT prophylaxis. Full code per patient request although I'm not sure she understood the conversation. Discussed with nursing, ER provider; past hospital records reviewed. 11/02/17 Patient remains very confused. Does not want to be here, but I strongly question her competency in regards to decision making capacity. It appears that there were similar concerns in 2014, but this has progressed. Will consult psychiatry for assessment. PT/OT eval pending, pt. will need YAMILETH. She clearly cannot care for herself at this point, so will continue hospital stay. Persistent Hypokalemia despite replacement. Will initiate IV replacement therapy. She continues to require monitoring for both her hypokalemia and elevated BP. Will change to inpatient status. Order telemetry monitoring during IV replacement, and to further assess irregular rhythm heard on exam. Patient remains very hypertensive, but has been refusing antihypertensive medications. Will start her on Clonidine TTS for now, but will need to monitor for sedation in an inpatient setting. Legs remain grossly abnormal. Would consider biopsy of lesions to R/O lymphoma. Edema is better. EF is unknown. Pt was not voiding last night - if persists, we may need to place a Alford. Will repeat CXR given one done last night was grossly abnormal, concern for poor study. Will need SW involvement. Continue to monitor labs. Old chart reviewed. 11/03/17 Psych evaluated pt and has ordered Vit B12 and folate. Rec replace B12 if < 400. Indicates patient has capacity to name daughter as medical DPOA. Dr. Curran has spoke with her daughter and they have agreed on DO NOT INTUBATE status. Persistent hypokalemia - potassium supplemented p.o. Repeat BMP in a.m. to follow electrolytes. Taking K-Phos. Pt willing to take Diflucan for her onychomycosis. Refusing any IV meds and fluids at present. Patient remains very hypertensive, but has been refusing antihypertensive medications. Wound clinic recommendation is to contact nurse who specializes in lymphedema. Case management to look into placement opts. OT rec [facility]. YAMILETH 6.5. Psych evaluated pt. Dx with Major neurocognitive disorder Participated in [facility] and scored an 11/30, indicating a neurocognitive disorder. She has gross deficits in working memory. Patient lacks capacity to make her own medical decisions though she would like to name her daughter medical DPOA & does have the capacity to do so. 11/04/17 Potassium with decrease to 2.8 this am. Phos improved to 4.3. Creatinine stable at 0.6 but CO2 increased to 32. Will stop KPhos and increase oral KCl to 20meg TID with meals. Continue Cozaar 50mg daily for BP. Will continue oral Lasix and spironolactone to help decrease edema/volume. Did agree to these medications. Norvasc 10mg given in afternoon as BP still with elevation. Vitamin B12 low normal at 255 - will start oral B12 (pt's likely to refuse IM injection). Elevate legs at rest as much as possible. PT/OT to help improve functional status. 11/05/17 Potassium still low at 2.9 this am. Phos improved to 4.3. Creatinine stable at 0.5. CO2 normal at 29. Blood pressure still elevated, but decreasing to 150 systolic. Increase Cozaar to 100mg daily for BP. Stop Lasix due to hypokalemia - will increase spironolactone to 50mg. May need to initiate Norvasc 5mg nightly if BP not showing improvement. Stop Lovenox as patient refusing - encourage continued ambulation to help with DVT prevention. Can change Pepcid to prn dyspepsia - attempt to minimize less essential medications. Patient's daughter plans to fly out from [place] tomorrow - will work with CM on discharge issues. With patient's significant neurocognitive disorder, doubt she will be able to return to independent living. 11/06/17 Lab showing hemolysis - potassium falsely elevated. Blood pressure gradually decreasing. Slept most of day. Daughter in from [place]. Will continue with Cozaar, Norvasc, Spironolactone and potassium replacement. Discussed with daughter about neurocognitive disorder. DPOA paperwork done today. Psych not feeling patient able to direct care more than determining DPOA. Looking into Skilled Care at [facility]. Uncertain if patient will improve enough to be able to return home. Daughter would like patient to be able to transition to Skilled as soon as able to allow patient to begin integration there. Will recheck lab tomorrow - hope to see improvement of potassium to allow for discharge. 11/07/17 Potassium has normalized at 3.6. Sodium slightly low today, otherwise labs stable. BP's much improved from admission, but still Stage 2. Will continue with Cozaar , Spironolactone & potassium replacement & increase Norvasc from 5mg to 10mg. Still working on placement. 11/08/17 K was 4.8 this morning - though specimen was hemolyzed (yesterday K was 3.6); repeat without hemolysis 4.6. Will stop oral potassium. Recheck tomorrow. BP still elevated, though improved from admission. Norvasc was increased to 10 mg last night. Continue Cozaar and spironolactone. Lasix remains on hold. Had restless night - couldn't sleep, agitation. Will start Haldol 0.5mg at HS. 11/09/17 Potassium normal at 4.4. Creatinine stable. Continue with blood pressure medications. Will change Nystatin powder to lotion to help moisturize skin on legs. Continue Diflucan. Continue elevation. Encourage ambulation. Stressed importance of skilled care post discharge.
[2017-11-09] MEDS: ACETAMINOPHEN 500 MG TABLET PO PRN (19:02)
[2017-11-09] MEDS: HALOPERIDOL 0.5 MG TABLET PO SCH (21:54)
[2017-11-09] MEDS: TRAMADOL 50 MG TABLET PO PRN (21:55)
[2017-11-09] MEDS: AMLODIPINE 10 MG TABLET PO SCH (21:55)
[2017-11-10 08:38] VITALS: RESP 16; O2SAT 95
[2017-11-10] MEDS: SPIRONOLACTONE 50 MG TABLET PO SCH (09:13)
[2017-11-10] MEDS: POLYETHYL GLYCOL 3350 17gm PACKET PO SCH (09:13)
[2017-11-10] MEDS: FLUCONAZOLE 150 MG TABLET PO SCH (09:13)
[2017-11-10] MEDS: LOSARTAN 100 MG TABLET PO SCH (09:13)
[2017-11-10] MEDS: CYANOCOBALAMIN (B-12) 500mcg TABLET PO SCH (09:14)
--- NOTE | 2017-11-10 11:27 | Progress Note ---
- Date 11/10/17 Subjective: Patient seen today sitting in her room Her daughter is present. Pt has no complaints. Daughter reports that she and her mother are disagreeing about what is best for the pt. Pt wants to go home. Daughter is in favor of placement in a facility which is recommended. No CP, SOA, n/v. Appetite is good. Pt feels the powder being used on her lower legs is drying and prefers to have lotion. Objective Vital signs: Temperature 96 F L 11/10/17 07:00 Pulse Rate 83 11/10/17 07:00 Respiratory Rate 16 11/10/17 07:00 Blood Pressure 145/80 H 11/10/17 07:00 Pulse Oximetry 95 11/10/17 07:00 Rhythm: Bundle Branch Block Height/Weight/BMI: Weight 94.5 kg - Constitutional Present: no acute distress, well nourished, well developed - Routine HEENT Exam Head: Present: normocephalic, atraumatic - Routine Respiratory Exam Present: CTA bilaterally. Absent: wheezes Comments: absent BS's RLL (secondary to elevated R hemidiaphragm) - Routine Cardiovascular Exam Present: RRR, no murmur - Routine Abdominal Exam Present: soft, non distended, non tender - Routine Extremities Exam Present: normal capillary refill Comments: chronic skin changes from lymphedema - Routine Skin Exam Present: dry, warm - Routine Neurological Exam Present: alert - Routine Lymphatic Exam Lymphatic: Absent: adenopathy - Routine Psychiatric Exam Present: normal affect, cooperative Results - Labs CBC & Chem 7: 11/03/17 04:26 11/09/17 04:59 Assessment and Plan (1) Hypokalemia Current visit: Yes Status: Acute (2) Self-care deficit in patient living alone Current visit: Yes Status: Acute Assessment and Plan: Impression Hypokalemia (POA) Deficiency in self-care Edema/lymphedema w/ chronic skin changes of LE's Candidiasis/intertrigo Stasis dermatitis-severe Hypertension Major neurocognitive disorder Ambulatory dysfunction with falls Hyperbilirubinemia Reported history of CHF, CAD, hyperlipidemia - all untreated currently at presentation Onychomycosis Low normal vitamin B12 Obesity with BMI 30.4 Plan DC nystatin powder. May use lotion PRN. Continues on Diflucan for onychomycosis. Awaiting placement. Discussed with director of casework services and pt and daughter. Labs and vitals are stable. BP's slightly elevated, but acceptable given pt's age. Currently on amlodipine, spironolactone and losartan. Resuscitation Status: Do Not Intubate - Physician Narrative Physician: Alcides Manning MD Narrative: Date: 11/10/17 Time: 1124 Have independently interviewed and examined pt. Chart reviewed. Case discussed with CM, pt's daughter, and my PA. Care plan developed with my supervision; agree with above. Doing well this afternoon. Eating well. Feels strength and stability improving. Sleeping well. Not having agitation of behavioral issues. Tolerating medications. Lungs: Decreased, no distress CV: regular MSE: awake alert appropriate Plan: Medically stable for discharge to [facility] nursing. See orders for details. Hospital Course Summary Disclaimer: The visit summary below is not to be considered part of the above Progress Note. Hospital Course: 11/01/17 Resume diuretics, pain control, continue potassium replacement-received 60 mEq in the emergency room, reassess in a.m. before additional doses given. Etiology of hypokalemia unclear-mild hypokalemia present when she was in the emergency room in April 2017 but prior to that time potassium was normal. Topical antifungal's at present, cultures needed, may require biopsy of LE. Marked hypertension, will avoid calcium blockers due to lower extremity edema. Resume diuretics, losartan 50 mg tonight, hydralazine/labetalol IV as needed. Elevate legs. Tramadol for pain if needed. Records indicate intolerance of acetaminophen products. Chest x-ray will be obtained due to uncontrolled hypertension and history of CHF. Will require PT/OT evaluations and case management assessment. YAMILETH eval will be scheduled. Unclear patient can live safely in the community at this time. Initiate Pepcid 20 mg twice a day as patient describes abdominal pain with baby aspirin. Lovenox for DVT prophylaxis. Full code per patient request although I'm not sure she understood the conversation. Discussed with nursing, ER provider; past hospital records reviewed. 11/02/17 Patient remains very confused. Does not want to be here, but I strongly question her competency in regards to decision making capacity. It appears that there were similar concerns in 2014, but this has progressed. Will consult psychiatry for assessment. PT/OT eval pending, pt. will need YAMILETH. She clearly cannot care for herself at this point, so will continue hospital stay. Persistent Hypokalemia despite replacement. Will initiate IV replacement therapy. She continues to require monitoring for both her hypokalemia and elevated BP. Will change to inpatient status. Order telemetry monitoring during IV replacement, and to further assess irregular rhythm heard on exam. Patient remains very hypertensive, but has been refusing antihypertensive medications. Will start her on Clonidine TTS for now, but will need to monitor for sedation in an inpatient setting. Legs remain grossly abnormal. Would consider biopsy of lesions to R/O lymphoma. Edema is better. EF is unknown. Pt was not voiding last night - if persists, we may need to place a [place]. Will repeat CXR given one done last night was grossly abnormal, concern for poor study. Will need SW involvement. Continue to monitor labs. Old chart reviewed. 11/03/17 Psych evaluated pt and has ordered Vit B12 and folate. Rec replace B12 if < 400. Indicates patient has capacity to name daughter as medical DPOA. Dr. Curran has spoke with her daughter and they have agreed on DO NOT INTUBATE status. Persistent hypokalemia - potassium supplemented p.o. Repeat BMP in a.m. to follow electrolytes. Taking K-Phos. Pt willing to take Diflucan for her onychomycosis. Refusing any IV meds and fluids at present. Patient remains very hypertensive, but has been refusing antihypertensive medications. Wound clinic recommendation is to contact nurse who specializes in lymphedema. Case management to look into placement opts. OT rec SNU. YAMILETH 6.5. Psych evaluated pt. Dx with Major neurocognitive disorder Participated in UMS and scored an 11/30, indicating a neurocognitive disorder. She has gross deficits in working memory. Patient lacks capacity to make her own medical decisions though she would like to name her daughter medical DPOA & does have the capacity to do so. 11/04/17 Potassium with decrease to 2.8 this am. Phos improved to 4.3. Creatinine stable at 0.6 but CO2 increased to 32. Will stop KPhos and increase oral KCl to 20meg TID with meals. Continue Cozaar 50mg daily for BP. Will continue oral Lasix and spironolactone to help decrease edema/volume. Did agree to these medications. Norvasc 10mg given in afternoon as BP still with elevation. Vitamin B12 low normal at 255 - will start oral B12 (pt's likely to refuse IM injection). Elevate legs at rest as much as possible. PT/OT to help improve functional status. 11/05/17 Potassium still low at 2.9 this am. Phos improved to 4.3. Creatinine stable at 0.5. CO2 normal at 29. Blood pressure still elevated, but decreasing to 150 systolic. Increase Cozaar to 100mg daily for BP. Stop Lasix due to hypokalemia - will increase spironolactone to 50mg. May need to initiate Norvasc 5mg nightly if BP not showing improvement. Stop Lovenox as patient refusing - encourage continued ambulation to help with DVT prevention. Can change Pepcid to prn dyspepsia - attempt to minimize less essential medications. Patient's daughter plans to fly out from [place] tomorrow - will work with CM on discharge issues. With patient's significant neurocognitive disorder, doubt she will be able to return to independent living. 11/06/17 Lab showing hemolysis - potassium falsely elevated. Blood pressure gradually decreasing. Slept most of day. Daughter in from [place]. Will continue with Cozaar, Norvasc, Spironolactone and potassium replacement. Discussed with daughter about neurocognitive disorder. DPOA paperwork done today. Psych not feeling patient able to direct care more than determining DPOA. Looking into Skilled Care at [facility]. Uncertain if patient will improve enough to be able to return home. Daughter would like patient to be able to transition to Skilled as soon as able to allow patient to begin integration there. Will recheck lab tomorrow - hope to see improvement of potassium to allow for discharge. 11/07/17 Potassium has normalized at 3.6. Sodium slightly low today, otherwise labs stable. BP's much improved from admission, but still Stage 2. Will continue with Cozaar , Spironolactone & potassium replacement & increase Norvasc from 5mg to 10mg. Still working on placement. 11/08/17 K was 4.8 this morning - though specimen was hemolyzed (yesterday K was 3.6); repeat without hemolysis 4.6. Will stop oral potassium. Recheck tomorrow. BP still elevated, though improved from admission. Norvasc was increased to 10 mg last night. Continue Cozaar and spironolactone. Lasix remains on hold. Had restless night - couldn't sleep, agitation. Will start Haldol 0.5mg at HS. 11/09/17 Potassium normal at 4.4. Creatinine stable. Continue with blood pressure medications. Will change Nystatin powder to lotion to help moisturize skin on legs. Continue Diflucan. Continue elevation. Encourage ambulation. Stressed importance of skilled care post discharge. 11/10/17 Doing well today. BP improving; tolerate BP medications without orthostasis. Eating and drinking well. Arrangements made for skilled stay at [facility] for skilled care. Can discharge there in stable condition. Will continue oral Diflucan for 2 more days - continue Nystatin lotion TID. Haldol 0.5mg at night to help sleep/behaviors - may use lorazepam 0.5mg q6 hours as needed. Continue Cozaar 100mg daily with Norvasc 10mg at night for blood pressure control. Will decrease spironolactone to 25mg daily and add furosemide 20mg daily to help edema. Vitamin B12 1000mcg to continue daily. PT/OT to help increase functional status. Lymphedema clinic evaluation would be reasonable. F/U with Dr Garcia in 1 week for medical evaluation. Will need BMP in 1 week secondary to HTN and medication use. See orders for details.
[2017-11-10 11:59] VITALS: BP 137/71; PULSE 78; TEMP 97.5
--- NOTE | 2017-11-10 14:02 | Extended Care Facility Orders ---
Admission Orders Admit to:: [facility] Allergies/Adverse Reactions: Allergies Sulfa (Sulfonamide Antibiotics) Allergy (Unknown, Verified 11/01/17 14:05) Admitting Diagnosis: Hypokalemia, Uncontrolled HTN, LE lymphedema Admitting Physician: Alcides Mnaning MD Attending Physician: Dr Livier Garcia Code Status: Do Not Intubate Anticiapted Length of Stay: 30 days or less Rehab Potential: fair Rehab Prognosis: fair Diet: Regular consistency, no added salt. Wound/Incision Care: Lotion as tolerated to keep skin from cracking open making it susceptible to bacteria. May use Facility Protocol or Standing Orders: Yes May have flu vaccine: Yes Evaluations/Treatment: PT (Gait instability, gen debility), OT (YAMILETH, evaluate pt's ability to funcition independenly at home.) [facility] Certification: I certify that SNF services are required to be given on an Inpatient basis because of the patients need for jail care on a continuing basis for the condition(s) for which he/she received inpatient hospital services prior to his/her transfer to the SNF. SNF inpatient care is necessary for the following reasons Indication for [facility]: Med Admininistration, Teach Medication Management, Other (Skilled PT/OT ) - Additional Information In Event of Arrest: Start CPR,call 911,send patient to the ER Resident is Aware of Diagnosis: Yes Referrals: Brien Garcia DO [Primary Care Provider] - 1 Week (Hospital follow up for hypokalemia and uncontrolled HTN) Additional Orders: BMP in 1 week - Dx: HTN, medication use. Elevated LE when at rest. Monitior LE edema. Consider Lymph edema evaluation. Lotion to Lower ext as needed for dryness.
--- NOTE | 2017-11-10 14:28 | Discharge Summary ---
Discharge Information Date of admission: 11/02/17 09:53 Anticipated date of discharge: 11/10/17 Attending Physician: Alcides Manning MD Primary care physician: Brien Garcia DO Consults: [facility] Consult: Reason for consultation: necrotic areas toes, hypertrophic skin lower extremities-may require biopsy Physician Consult: Dr Dennis Reason For Exam: Psych evaluation PT/OT - Discharge Diagnosis (1) Hypokalemia Status: Acute (2) Self-care deficit in patient living alone Status: Acute Discharge diagnosis Hypokalemia (POA) Associated conditions and complications Deficiency in self-care Edema/lymphedema w/ chronic skin changes of LE's Candidiasis/intertrigo Stasis dermatitis-severe Hypertension Major neurocognitive disorder Ambulatory dysfunction with falls Hyperbilirubinemia Reported history of CHF, CAD, hyperlipidemia - all untreated currently at presentation Onychomycosis Low normal vitamin B12 Obesity with BMI 30.4 - Laboratory Labs: Admit Lab 11/01/17 14:54 WBC 7.3 Hgb 12.7 Hct 38.7 MCV 90.6 Plt Count 253 Neut % (Auto) 73.3 H Lymph % (Auto) 15.1 L [place] % (Auto) 10.0 H Eos % (Auto) 1.1 Baso % (Auto) 0.4 Admit Lab 11/01/17 14:54 Sodium 145 Potassium 2.7 L* Chloride 100 Carbon Dioxide 30 Anion Gap 15 BUN 10.0 Creatinine 0.7 GFR Calculation 79 BUN/Creatinine Ratio 14 Glucose 113 H Calculated Osmolality 279 Calcium 9.3 Total Bilirubin 2.30 H AST 19 ALT 8 Alkaline Phosphatase 100 Total Protein 7.6 Albumin 4.3 Globulin 3.3 Albumin/Globulin Ratio 1.3 Vitamin B12 Tests 11/04/17 11/04/17 04:05 04:05 Vitamin B12 255 Methylmalonic Acid 0.36 TSH Tests 11/02/17 11/02/17 04:49 04:49 TSH 5.83 H Free T4 1.50 11/03/17 04:26 11/09/17 04:59 - Radiology Radiology: Date of Exam: 11/01/17 Type of Exam: XR chest 1V Findings: Elevated right hemidiaphragm. Soft tissues overlapping the upper to mid lung [place] limiting the evaluation. No focal pneumonia or gross pneumothorax. Colon interposition anterior to the liver. Cardiac silhouette is obscured. Pulmonary vascularity is now not obviously enlarged. Densities projecting over the right upper abdomen could represent healing subacute rib fractures or possibly gallstones. Impression: Limited exam. No focal pneumonia. Date of Exam: 11/02/17 Type of Exam: XR chest 1V Findings: Appearance of the chest is unchanged with a markedly elevated right hemidiaphragm. No obvious focal pneumonia, gross pleural effusion or pneumothorax. Cardiac silhouette is mostly obscured. Pulmonary vascularity is stable. Chronic appearing left humeral head fracture. Impression: Stable chest without gross pneumonia or overt congestive failure. History of Present Illness HPI: Mrs. Patricia is a 87 yo female who reports falling a week ago and being seen in the emergency room at that time followed by a fall last night prompting reevaluation today. Review of ER records indicate she was last seen on 2016 at which time she had hallucinations, and pain and swelling of the ankles and was found to have a urinary tract infection. The patient reports that she summoned her neighbors help today by yelling all night and that her neighbor brought her to the emergency room for evaluation. Patient complains of swelling in her legs for about a year and that her legs are painful and "broken out all over". The pain and swelling in her legs makes it difficult for her to ambulate because her legs are heavy. She denies having fevers and there's been no drainage from her legs. EMS records indicate the patient is on twice in the past 24 hours. Patient denies injuring herself today but reports that she had facial bruising and contusions after her last fall. The neighbor who accompanied patient to the emergency room earlier today reports that the patient 's legs been getting worse over the past year and to become very bumpy. Patient was last seen by a physician last fall and the patient is noncompliant with medications not taking any prescribed medications currently. The patient alternately provides current historical information mixed in with old historical information and it's often difficult to determine if she is talking about current events or remote occurrences. For complete details of the H&P refer to that document. Objective Vital signs: Temperature 97.5 F 11/10/17 11:58 Pulse Rate 78 11/10/17 11:58 Respiratory Rate 16 11/10/17 11:58 Blood Pressure 137/71 11/10/17 11:58 Pulse Oximetry 95 11/10/17 11:58 Rhythm: Bundle Branch Block Height/Weight/BMI: Weight 94.5 kg Hospital Course This is a general summary of the patient's hospital course. For more details refer to the complete medical record. Hospital course: 11/01/17 Resume diuretics, pain control, continue potassium replacement-received 60 mEq in the emergency room, reassess in a.m. before additional doses given. Etiology of hypokalemia unclear-mild hypokalemia present when she was in the emergency room in April 2017 but prior to that time potassium was normal. Topical antifungal's at present, cultures needed, may require biopsy of LE. Marked hypertension, will avoid calcium blockers due to lower extremity edema. Resume diuretics, losartan 50 mg tonight, hydralazine/labetalol IV as needed. Elevate legs. Tramadol for pain if needed. Records indicate intolerance of acetaminophen products. Chest x-ray will be obtained due to uncontrolled hypertension and history of CHF. Will require PT/OT evaluations and case management assessment. YAMILETH altamirano will be scheduled. Unclear patient can live safely in the community at this time. Initiate Pepcid 20 mg twice a day as patient describes abdominal pain with baby aspirin. Lovenox for DVT prophylaxis. Full code per patient request although I'm not sure she understood the conversation. Discussed with nursing, ER provider; past hospital records reviewed. 11/02/17 Patient remains very confused. Does not want to be here, but I strongly question her competency in regards to decision making capacity. It appears that there were similar concerns in 2014, but this has progressed. Will consult psychiatry for assessment. PT/OT eval pending, pt. will need YAMILETH. She clearly cannot care for herself at this point, so will continue hospital stay. Persistent Hypokalemia despite replacement. Will initiate IV replacement therapy. She continues to require monitoring for both her hypokalemia and elevated BP. Will change to inpatient status. Order telemetry monitoring during IV replacement, and to further assess irregular rhythm heard on exam. Patient remains very hypertensive, but has been refusing antihypertensive medications. Will start her on Clonidine TTS for now, but will need to monitor for sedation in an inpatient setting. Legs remain grossly abnormal. Would consider biopsy of lesions to R/O lymphoma. Edema is better. EF is unknown. Pt was not voiding last night - if persists, we may need to place a [place]. Will repeat CXR given one done last night was grossly abnormal, concern for poor study. Will need SW involvement. Continue to monitor labs. Old chart reviewed. 11/03/17 Psych evaluated pt and has ordered Vit B12 and folate. Rec replace B12 if < 400. Indicates patient has capacity to name daughter as medical DPOA. Dr. Curran has spoke with her daughter and they have agreed on DO NOT INTUBATE status. Persistent hypokalemia - potassium supplemented p.o. Repeat BMP in a.m. to follow electrolytes. Taking K-Phos. Pt willing to take Diflucan for her onychomycosis. Refusing any IV meds and fluids at present. Patient remains very hypertensive, but has been refusing antihypertensive medications. Wound clinic recommendation is to contact nurse who specializes in lymphedema. Case management to look into placement opts. OT rec SNU. YAMILETH 6.5. Psych evaluated pt. Dx with Major neurocognitive disorder Participated in [employer] and scored an 04/24, indicating a neurocognitive disorder. She has gross deficits in working memory. Patient lacks capacity to make her own medical decisions though she would like to name her daughter medical DPOA & does have the capacity to do so. 11/04/17 Potassium with decrease to 2.8 this am. Phos improved to 4.3. Creatinine stable at 0.6 but CO2 increased to 32. Will stop KPhos and increase oral KCl to 20meg TID with meals. Continue Cozaar 50mg daily for BP. Will continue oral Lasix and spironolactone to help decrease edema/volume. Did agree to these medications. Norvasc 10mg given in afternoon as BP still with elevation. Vitamin B12 low normal at 255 - will start oral B12 (pt's likely to refuse IM injection). Elevate legs at rest as much as possible. PT/OT to help improve functional status. 11/05/17 Potassium still low at 2.9 this am. Phos improved to 4.3. Creatinine stable at 0.5. CO2 normal at 29. Blood pressure still elevated, but decreasing to 150 systolic. Increase Cozaar to 100mg daily for BP. Stop Lasix due to hypokalemia - will increase spironolactone to 50mg. May need to initiate Norvasc 5mg nightly if BP not showing improvement. Stop Lovenox as patient refusing - encourage continued ambulation to help with DVT prevention. Can change Pepcid to prn dyspepsia - attempt to minimize less essential medications. Patient's daughter plans to fly out from [place] tomorrow - will work with on discharge issues. With patient's significant neurocognitive disorder, doubt she will be able to return to independent living. 11/06/17 Lab showing hemolysis - potassium falsely elevated. Blood pressure gradually decreasing. Slept most of day. Daughter in from [place]. Will continue with Cozaar, Norvasc, Spironolactone and potassium replacement. Discussed with daughter about neurocognitive disorder. DPOA paperwork done today. Psych not feeling patient able to direct care more than determining DPOA. Looking into Sk[facility] at [facility]. Uncertain if patient will improve enough to be able to return home. Daughter would like patient to be able to transition to Skilled as soon as able to allow patient to begin integration there. Will recheck lab tomorrow - hope to see improvement of potassium to allow for discharge. 11/07/17 Potassium has normalized at 3.6. Sodium slightly low today, otherwise labs stable. BP's much improved from admission, but still Stage 2. Will continue with Cozaar , Spironolactone & potassium replacement & increase Norvasc from 5mg to 10mg. Still working on placement. 11/08/17 K was 4.8 this morning - though specimen was hemolyzed (yesterday K was 3.6); repeat without hemolysis 4.6. Will stop oral potassium. Recheck tomorrow. BP still elevated, though improved from admission. Norvasc was increased to 10 mg last night. Continue Cozaar and spironolactone. Lasix remains on hold. Had restless night - couldn't sleep, agitation. Will start Haldol 0.5mg at HS. 11/09/17 Potassium normal at 4.4. Creatinine stable. Continue with blood pressure medications. Will change Nystatin powder to lotion to help moisturize skin on legs. Continue Diflucan. Continue elevation. Encourage ambulation. Stressed importance of skilled care post discharge. 11/10/17 Doing well today. BP improving; tolerate BP medications without orthostasis. Eating and drinking well. Arrangements made for skilled stay at [facility] for skilled care. Can discharge there in stable condition. Will continue oral Diflucan for 2 more days - continue Nystatin lotion TID. Haldol 0.5mg at night to help sleep/behaviors - may use lorazepam 0.5mg q6 hours as needed. Continue Cozaar 100mg daily with Norvasc 10mg at night for blood pressure control. Will decrease spironolactone to 25mg daily and add furosemide 20mg daily to help edema. Vitamin B12 1000mcg to continue daily. PT/OT to help increase functional status. Lymphedema clinic evaluation would be reasonable. F/U with Dr Garcia in 1 week for medical evaluation. Will need BMP in 1 week secondary to HTN and medication use. See orders for details. Time spent with patient: discharge greater than 30 minutes Resuscitation Status: Do Not Intubate Discharge Plan - Discharge Disposition Discharge Date: 11/10/17 Disposition: 03 To SNU Not [facility] ([place]) *Condition: Stable Reason For Visit (Visit label in EMR): Hypokalemia, Uncontrolled HTN - Discharge Medications *Discharge Medications: New Cyanocobalamin (B-12) [Vit. B-12] 1,000 mcg PO DAILY tab Fluconazole [Diflucan 150 mg Tablet] 150 mg PO DAILY #2 tab Furosemide [Lasix 20 mg Tab] 20 mg PO DAILY #20 tab Haloperidol [Haldol] 0.5 mg PO HS #30 tab LORazepam [Ativan] 0.5 mg PO Q6HR PRN #20 tab PRN Reason: Anxiety Losartan [Cozaar] 100 mg PO DAILY #30 tab Milk of Magnesia [Mom] 30 ml PO DAILY PRN udc PRN Reason: Constipation Nystatin Cream [Mycostatin] 1 applicatio TOP TID #1 tube PEG 3350 17gm PACKET [Miralax] 17 gm PO DAILY PRN packet PRN Reason: Constipation Spironolactone [Aldactone 25 mg] 25 mg PO DAILY #30 tab Tramadol [Ultram] 50 mg PO Q4H PRN #30 tab PRN Reason: Pain Bisacodyl Supp [Dulcolax] 10 mg RECTALLY DAILY PRN suppositor PRN Reason: Constipation Acetaminophen [Tylenol] 500 mg PO Q5H PRN tab PRN Reason: Discomfort Amlodipine [Norvasc] 10 mg PO HS #30 tab - Discharge Packet/Instructions *Diet: Regular diet with no added salt *Activity: As tolerated, walker for assistance *Pain Management/Treatment: Acetaminophen and/or tramadol as needed for pain. *Wound Care: Lotion as tolerated to keep skin from cracking open making it susceptible to bacteria. *Expected Signs/Symptoms: Improvement of blood pressure, decreasing LE edema, and strenght gains *Notify Physician if: Temp > 100.4. Increased LE edema. *During Business Hours Contact: Nursing staff at [facility] *After Business Hours Contact: Nursing staff at [facility]. *Pending Lab/Results: No Pending Lab - Referrals/Follow Up *Referrals/Follow Up: Brien Garcia DO [Primary Care Provider] - 1 Week (Hospital follow up for hypokalemia and uncontrolled HTN) - Patient Handouts Patient Handouts: Hypokalemia (GEN) - Dismissal Complete Discharge Instructions are:: Complete Physician Narrative - Narrative Physician: Alcides Manning MD Attestation Narrative: Date: 11/10/17 Time: 7221 I have independently interviewed and examined patient prior to discharge. See my progress note for details. Medically stable for discharge to correction.
== END 2017-11-10 15:50 | DRG 641 ==
LOC: EDHOLD 13:50 → ED 13:50 → MED 19:15 → SUATTDRO 11-02 09:53
PROVIDERS: ADMIT Internal Medicine; ATTEND Hospitalist